=== PATIENT | female | born 1960 | race Caucasian/White ===

== ENCOUNTER 2017-07-07 06:25 | Inpatient (IN) ==
[2017-07-07 07:16] LABS: Basophils % 0.3 %; Bilirubin,Urine Small (Negative); Blood,Urine Negative (Negative); Clarity,Urine Cloudy (Clear); Color,Urine Dark Yellow (Yellow); Eosinophils % 0.2 %; Glucose,Urine (UA) Normal (Normal); Hematocrit 38.5 % (35.3-44.9); Hemoglobin 13.6 g/dL (11.5-15.4); Immature Granulocytes % 0.2 % (0-4); Ketones,Urine Trace mg/dL (Negative); Leukocyte Esterase,Urine Negative (Negative); Lymphocytes # 3.3 K/mcL (0.6-4.6); Lymphocytes % 26.7 %; Mean Corpuscular HGB Conc 35.3 g/dL (31.6-35.5); Mean Corpuscular Hemoglobin 31.4 pg (28.0-33.3); Mean Corpuscular Volume 88.9 fL (83.0-100.0); Mean Platelet Volume 10.7 fL (9.4-12.4); Monocytes # 0.4 K/mcL (0.0-1.3); Monocytes % 3.6 %; Neutrophils # 8.4 K/mcL (1.6-8.9); Nitrite,Urine Negative (Negative); Platelet Count 279 K/mcL (140-400); Protein,Urine 30 mg/dL (Neg-Trace); Red Blood Count 4.33 M/mcL (3.82-4.97); Red Cell Distribution Width 12.8 % (11.5-14.5); Urobilinogen,Urine Normal (Normal)
[2017-07-07 07:19] LABS: Bacteria,Urine None Seen per hpf (None-Few); Squamous Epithelial Cell,Urine Many per lpf (None-Few)
[2017-07-07 07:26] LABS: Amphetamine Screen,Urine Negative ng/mL (Cutoff=1000); Barbiturate Screen,Urine Negative ng/mL (Cutoff=200); Benzodiazepines Screen,Urine Positive ng/mL (Cutoff=200); Cannabinoid Screen,Urine Positive ng/mL (Cutoff = 50); Cocaine Screen,Urine Negative ng/mL (Cutoff= 300); Opiate Screen,Urine Negative ng/mL (Cutoff=300); Phencyclidine Screen,Urine Negative ng/mL (Cutoff=25)
[2017-07-07 07:40] LABS: Acetaminophen < 10 mcg/mL (10-20); BUN/Creatinine Ratio 18 (6-26); Blood Urea Nitrogen 12 mg/dL (6-20); Calcium 9.3 mg/dL (8.6-10.3); Carbon Dioxide 18 mEq/L (23-29); Chloride 108 mEq/L (98-107); Ethanol < 10 mg/dL (Less than 10); Glucose 187 mg/dL (70-105); Osmolality,Calculated 293 (280-300); Potassium 3.1 mEq/L (3.5-5.1); Salicylate < 2.5 mg/dL (15.0-30.0); Sodium 139 mEq/L (136-145); eGFR For African Americans > 60 (> 60); eGFR For Non-African Americans > 60 (> 60)
[2017-07-07 07:42] LABS: RBC,Urine 0-3 per hpf (0-3)
[2017-07-07] MEDS ORDERED: clonazePAM 0.5 MG TABLET PO ONE ×2 (07:55→10:40)
--- NOTE | 2017-07-07 08:17 | Emergency Department Note ---
Disposition Clinical Impression: Suicidal ideation Depression Qualifiers: Depression Type: unspecified Qualified Code(s): F32.9 - Major depressive disorder, single episode, unspecified Disposition: Admitted As Inpatient Condition: Fair Psych HPI - General Chief Complaint: ED Psychiatric Symptoms Stated Complaint: SI/detox Time Seen by Provider: 07/07/17 06:30 Source: patient, family, EMS Nursing Notes Reviewed: Yes Vital Signs Reviewed: Yes - History of Present Illness HPI Narrative: 56 year old female with history of bipolar, depression and anxiety presents with severe depression. Pt has been on Xanax for a year. 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 She tried to quit it due to Benzo gave her more depression. Pt was admitted to a hospital in [place] for Benzo detox in the past week. She was started Paxil three days ago. Pt reported hearing ringing sound in ears since she started Paxil. No human voice heard. Pt felt very scared she might hurt herself due to severe depression. Pt is currently on Long acting Benzo 2 mg twice a day and Xanax 1 mg twice daily. The last she took Benzo was 6 hours ago. She reported she has already experienced withdraw symptoms: anxiety and body ache. No plan for suicide. Pt has history of brain Tumor. It was removed in 1999 in [facility]. Follow up brain CT and MRI were fine. the last time brain CT was done in Apr 2017, no acute change Pt complaint: suicidal ideation, feels depressed, anxiety, other (body ache from Benzo withdraw) Duration: constant History of similar episodes: Yes - Related Data Home Medications Medication Instructions Recorded Confirmed ALPRAZolam [Xanax 0.5 MG Tablet] 0.5 mg PO TID 07/07/17 07/07/17 Alprazolam XR [Xanax Xr] 2 mg PO BID 07/07/17 07/07/17 Amlodipine Besylate 10 mg PO DAILY 07/07/17 07/07/17 Atorvastatin [Lipitor] 40 mg PO HS 07/07/17 07/07/17 Estradiol [Estrace] 1 mg PO DAILY 07/07/17 07/07/17 Lisinopril [Zestril] 20 mg PO DAILY 07/07/17 07/07/17 Medroxyprogesterone Acetate 2.5 mg PO DAILY 07/07/17 07/07/17 [Provera] Multivit-Min/FA/Lycopen/Lutein [A 1 tab PO DAILY 07/07/17 07/07/17 Thru Z Select Multivit Tab] Oxycodone HCl/Acetaminophen 1 tab PO Q4H PRN 07/07/17 07/07/17 [Percocet 5-325 mg Tablet] Paroxetine HCl [Paxil] 20 mg PO DAILY 07/07/17 07/07/17 Allergies Allergy/AdvReac Type Severity Reaction Status Date / Time pramipexole [From Mirapex] Allergy Seizure Verified 07/07/17 06:49 Tetracycline Allergy Anaphylaxis Verified 07/07/17 06:49 aspirin AdvReac Gastrointestinal Verified 07/07/17 06:49 Upset Constitutional: Denies: fever, chills, weakness Eyes: Denies: eye pain, eye discharge ENT ED: Denies: ear pain, throat pain Cardiovascular: Denies: chest pain, palpitations Respiratory: Denies: cough, dyspnea, wheezes Gastrointestinal: Denies: abdominal pain, nausea, vomiting Genitourinary: Denies: urgency, dysuria, frequency Musculoskeletal: Denies: back pain, neck pain, joint swelling Integumentary: Denies: rash, abrasion, lesions Neurological: Denies: headache, weakness, numbness Psychiatric: Denies: anxiety, depression, suicidal thoughts Hematological/Lymphatic: Denies: easy bleeding, easy bruising Allergic/Immunologic: Denies: facial swelling, urticaria Past Medical History - Past Medical History Medical history: Reports: hypertension, migraine, other Surgical history: Reports: hysterectomy, orthopedic, other Psychiatric history: Reports: anxiety, depression - Social History Smoking Status: Former smoker Smokeless Tobacco Status: No Alcohol use: Reports: none Drug use: Reports: prescription drug abuse Physical Exam - General Limitations: no limitations General appearance: alert - Head Head exam: atraumatic, normal inspection - Eye Eye exam: Present: normal appearance. Absent: scleral icterus, conjunctival injection - ENT ENT exam: normal exam, normal external ear exam - Neck Neck exam: Present: normal inspection, full ROM, trachea midline. Absent: tenderness - Chest Chest inspection: Present: normal inspection, symmetric chest wall rise. Absent : tenderness - Respiratory Respiratory exam: Present: normal lung sounds bilaterally. Absent: respiratory distress, wheezes - Cardiovascular Cardiovascular exam: Present: regular rate, normal rhythm - Abdominal Exam Abdominal exam: Present: soft, Non-Tender - Extremities Exam Extremities exam: Present: normal inspection, full ROM. Absent: tenderness - Back Exam Back exam: Present: normal inspection, full ROM. Absent: tenderness - Neurological Exam Neurological exam: Present: alert, oriented X3, CN II-XII intact, normal gait. Absent: motor sensory deficit - Psychiatric Psychiatric exam: Present: depressed (tearing), suicidal ideation (worried that might hurt herself) - Skin Skin exam: Present: warm, intact Course Vital Signs Temperature 98.7 F 07/07/17 06:30 Pulse Rate 86 07/07/17 06:30 Respiratory Rate 20 07/07/17 06:30 Blood Pressure 164/99 07/07/17 06:30 O2 Sat by Pulse Oximetry 98 07/07/17 06:30 Temperature 98.5 F 07/07/17 10:57 Pulse Rate 79 07/07/17 10:57 Respiratory Rate 18 07/07/17 10:57 Blood Pressure 143/78 07/07/17 10:57 O2 Sat by Pulse Oximetry 94 07/07/17 10:57 Oxygen Delivery Oxygen Delivery Room Air Psych - MDM Narrative Medical decision making narrative: 56 year old female with history of Bipolar, depression anxiety presents with suicidal thought. Pt stated she was on benzo for one year. Eversince her depression got worse. Pt was admitted to a hospital in [place]. She started Paxil three days ago.. She started hearing ringing sound in ears after taking new medication. She also complain of so scared to hurt herself, body ache due to Xanax withdraw. Physical exam: pt was tearing, depressed looking, alert and oriented, no focal neurology deficit, no other positive finding in physical. Labs: decreased Potassium level, potassium 40 meq given in ER, UA: benzo, marijuana positive. Otherwise unremarkable blood work. IA evaluation completed , pt will be admitted to Psych unit for suicidal ideation, depression. Dr. Harrell saw this pt as well, agrees the above plan. - Lab Data Result diagrams: 07/07/17 06:46 07/07/17 06:46 Lab Results 07/07/17 07/07/17 07/07/17 Range/Units 06:46 06:46 06:46 WBC 12.2 H (4.3-11.1) K/mcL RBC 4.33 (3.82-4.97) M/mcL Hgb 13.6 (11.5-15.4) g/dL Hct 38.5 (35.3-44.9) % MCV 88.9 (83.0-100.0) fL MCH 31.4 (28.0-33.3) pg MCHC 35.3 (31.6-35.5) g/dL RDW 12.8 (11.5-14.5) % Plt Count 279 (140-400) K/mcL MPV 10.7 (9.4-12.4) fL Immature Gran % 0.2 (0-4) % Seg Neutrophils % 69.0 % Lymphocytes % 26.7 % Monocytes % 3.6 % Eosinophils % 0.2 % Basophils % 0.3 % Neutrophils # 8.4 (1.6-8.9) K/mcL Lymphocytes # 3.3 (0.6-4.6) K/mcL Monocytes # 0.4 (0.0-1.3) K/mcL Eosinophils # 0.0 (0.0-0.6) K/mcL Basophils # 0.0 (0.0-0.2) K/mcL Sodium 139 (136-145) mEq/L Potassium 3.1 L (3.5-5.1) mEq/L Chloride 108 H (98-107) mEq/L Carbon Dioxide 18 L (23-29) mEq/L BUN 12 (6-20) mg/dL Creatinine 0.68 (0.60-1.20) mg/dL Est GFR ( Amer) > 60 (> 60) Est GFR (Non-Af Amer) > 60 (> 60) BUN/Creatinine Ratio 18 (6-26) Glucose 187 H (70-105) mg/dL Calculated Osmolality 293 (280-300) Calcium 9.3 (8.6-10.3) mg/dL Urine Color Dark Yellow (Yellow) Urine Clarity Cloudy A (Clear) Urine pH 6.0 (5.0-8.0) pH Units Ur Specific [place] 1.030 H (1.010-1.025) Urine Protein 30 H (Neg-Trace) mg/dL Urine Glucose (UA) Normal (Normal) mg/dL Urine Ketones Trace H (Negative) mg/dL Urine Blood Negative (Negative) Urine Nitrite Negative (Negative) Urine Bilirubin Small H (Negative) Urine Urobilinogen Normal (Normal) mg/dL Ur Leukocyte Esterase Negative (Negative) Urine Microscopic RBC 0-3 (0-3) per hpf Urine Microscopic WBC 5-15 H (0-3) per hpf Ur Squamous Epith Cells Many H (None-Few) per lpf Urine Bacteria None Seen (None-Few) per hpf Salicylates < 2.5 L (15.0-30.0) mg/dL Urine Opiates Screen (Thvcmw=680) ng/mL Acetaminophen < 10 L (10-20) mcg/mL Ur Barbiturates Screen (Vqijwz=611) ng/mL Ur Phencyclidine Scrn (Cutoff=25) ng/mL Ur Amphetamines Screen (Jgxofk=6960) ng/mL U Benzodiazepines Scrn (Hwewak=580) ng/mL Urine Cocaine Screen (Cutoff= 300) ng/mL U Marijuana (THC) Screen (Cutoff = 50) ng/mL Ethyl Alcohol < 10 (Less than 10) mg/dL 07/07/17 Range/Units 06:46 WBC (4.3-11.1) K/mcL RBC (3.82-4.97) M/mcL Hgb (11.5-15.4) g/dL Hct (35.3-44.9) % MCV (83.0-100.0) fL MCH (28.0-33.3) pg MCHC (31.6-35.5) g/dL RDW (11.5-14.5) % Plt Count (140-400) K/mcL MPV (9.4-12.4) fL Immature Gran % (0-4) % Seg Neutrophils % % Lymphocytes % % Monocytes % % Eosinophils % % Basophils % % Neutrophils # (1.6-8.9) K/mcL Lymphocytes # (0.6-4.6) K/mcL Monocytes # (0.0-1.3) K/mcL Eosinophils # (0.0-0.6) K/mcL Basophils # (0.0-0.2) K/mcL Sodium (136-145) mEq/L Potassium (3.5-5.1) mEq/L Chloride (98-107) mEq/L Carbon Dioxide (23-29) mEq/L BUN (6-20) mg/dL Creatinine (0.60-1.20) mg/dL Est GFR ( Amer) (> 60) Est GFR (Non-Af Amer) (> 60) BUN/Creatinine Ratio (6-26) Glucose (70-105) mg/dL Calculated Osmolality (280-300) Calcium (8.6-10.3) mg/dL Urine Color (Yellow) Urine Clarity (Clear) Urine pH (5.0-8.0) pH Units Ur Specific [place] (1.010-1.025) Urine Protein (Neg-Trace) mg/dL Urine Glucose (UA) (Normal) mg/dL Urine Ketones (Negative) mg/dL Urine Blood (Negative) Urine Nitrite (Negative) Urine Bilirubin (Negative) Urine Urobilinogen (Normal) mg/dL Ur Leukocyte Esterase (Negative) Urine Microscopic RBC (0-3) per hpf Urine Microscopic WBC (0-3) per hpf Ur Squamous Epith Cells (None-Few) per lpf Urine Bacteria (None-Few) per hpf Salicylates (15.0-30.0) mg/dL Urine Opiates Screen Negative (Wopqsr=109) ng/mL Acetaminophen (10-20) mcg/mL Ur Barbiturates Screen Negative (Wymrpi=540) ng/mL Ur Phencyclidine Scrn Negative (Cutoff=25) ng/mL Ur Amphetamines Screen Negative (Zmedfs=5503) ng/mL U Benzodiazepines Scrn Positive H (Xalhcm=058) ng/mL Urine Cocaine Screen Negative (Cutoff= 300) ng/mL U Marijuana (THC) Screen Positive H (Cutoff = 50) ng/mL Ethyl Alcohol (Less than 10) mg/dL Psychiatric Medical Clearance - Medical Clearance Checklist Medical History: Suicidal ideation (Acute) Depression (Acute) Accelerated hypertension (Inactive) Chronic headache (Inactive) Depression (Inactive) Dysphagia (Inactive) Medication refill (Inactive) Migraine (Inactive) Otitis media (Inactive) Postoperative pain (Inactive) No Social History Section defined Current Vitals: Last Vital Signs Temp 98.5 F 07/07/17 10:57 Pulse 79 07/07/17 10:57 Resp 18 07/07/17 10:57 BP 143/78 07/07/17 10:57 Pulse Ox 94 07/07/17 10:57 Psychiatric Lab Panel: Drug Levels and Toxicity 07/07/17 07/07/17 06:46 06:46 Urine Opiates Screen Negative Acetaminophen < 10 L Ur Barbiturates Screen Negative Ur Phencyclidine Scrn Negative Ur Amphetamines Screen Negative U Benzodiazepines Scrn Positive H Urine Cocaine Screen Negative U Marijuana (THC) Screen Positive H Ethyl Alcohol < 10 Abnormal Labs: Abnormal lab results WBC 12.2 K/mcL (4.3-11.1) H 07/07/17 06:46 Potassium 3.1 mEq/L (3.5-5.1) L 07/07/17 06:46 Chloride 108 mEq/L (98-107) H 07/07/17 06:46 Carbon Dioxide 18 mEq/L (23-29) L 07/07/17 06:46 Glucose 187 mg/dL (70-105) H 07/07/17 06:46 Urine Clarity Cloudy (Clear) A 07/07/17 06:46 Ur Specific [place] 1.030 (1.010-1.025) H 07/07/17 06:46 Urine Protein 30 mg/dL (Neg-Trace) H 07/07/17 06:46 Urine Ketones Trace mg/dL (Negative) H 07/07/17 06:46 Urine Bilirubin Small (Negative) H 07/07/17 06:46 Urine Microscopic WBC 5-15 per hpf (0-3) H 07/07/17 06:46 Ur Squamous Epith Cells Many per lpf (None-Few) H 07/07/17 06:46 Salicylates < 2.5 mg/dL (15.0-30.0) L 07/07/17 06:46 Acetaminophen < 10 mcg/mL (10-20) L 07/07/17 06:46 U Benzodiazepines Scrn Positive ng/mL (Nafzne=843) H 07/07/17 06:46 U Marijuana (THC) Screen Positive ng/mL (Cutoff = 50) H 07/07/17 06:46 Statement of Medical Clearance: I have evaluated the patient, reviewed diagnostic information, and certify that the patient's medical condition is sufficiently stable that transfer to the psychiatric unit does not pose a significant risk of deterioration.
--- NOTE | 2017-07-07 11:23 | Emergency Department Note ---
Disposition Clinical Impression: Suicidal ideation Depression Qualifiers: Depression Type: unspecified Qualified Code(s): F32.9 - Major depressive disorder, single episode, unspecified Disposition: Admitted As Inpatient Condition: Fair Referrals: NONE,PCP [Primary Care Provider] - Forms: ED Satisfaction Letter General Adult HPI - General Chief complaint: ED Psychiatric Symptoms Stated complaint: SI/detox Time Seen by Provider: 07/07/17 06:30 Source: patient, family, EMS Limitations: no limitations - History of Present Illness Pain Scale: 0 - Related Data Home Medications Medication Instructions Recorded Confirmed ALPRAZolam [Xanax 0.5 MG Tablet] 0.5 mg PO TID 07/07/17 07/07/17 Alprazolam XR [Xanax Xr] 2 mg PO BID 07/07/17 07/07/17 Amlodipine Besylate 10 mg PO DAILY 07/07/17 07/07/17 Atorvastatin [Lipitor] 40 mg PO HS 07/07/17 07/07/17 Estradiol [Estrace] 1 mg PO DAILY 07/07/17 07/07/17 Lisinopril [Zestril] 20 mg PO DAILY 07/07/17 07/07/17 Medroxyprogesterone Acetate 2.5 mg PO DAILY 07/07/17 07/07/17 [Provera] Multivit-Min/FA/Lycopen/Lutein [A 1 tab PO DAILY 07/07/17 07/07/17 Thru Z Select Multivit Tab] Oxycodone HCl/Acetaminophen 1 tab PO Q4H PRN 07/07/17 07/07/17 [Percocet 5-325 mg Tablet] Paroxetine HCl [Paxil] 20 mg PO DAILY 07/07/17 07/07/17 Allergies Allergy/AdvReac Type Severity Reaction Status Date / Time pramipexole [From Mirapex] Allergy Seizure Verified 07/07/17 06:49 Tetracycline Allergy Anaphylaxis Verified 07/07/17 06:49 aspirin AdvReac Gastrointestinal Verified 07/07/17 06:49 Upset Constitutional: Denies: fever, chills, weakness Eyes: Denies: eye pain, eye discharge ENT ED: Denies: ear pain, throat pain Cardiovascular: Denies: chest pain, palpitations Respiratory: Denies: cough, dyspnea, wheezes Gastrointestinal: Denies: abdominal pain, nausea, vomiting Genitourinary: Denies: urgency, dysuria, frequency Musculoskeletal: Denies: back pain, neck pain, joint swelling Integumentary: Denies: rash, abrasion, lesions Neurological: Denies: headache, weakness, numbness Psychiatric: Denies: anxiety, depression, suicidal thoughts Hematological/Lymphatic: Denies: easy bleeding, easy bruising Allergic/Immunologic: Denies: facial swelling, urticaria Past Medical History - Past Medical History Medical history: Reports: hypertension, migraine, other Surgical history: Reports: hysterectomy, orthopedic, other Psychiatric history: Reports: anxiety, depression - Social History Smoking Status: Former smoker Smokeless Tobacco Status: No Alcohol use: Reports: none Drug use: Reports: prescription drug abuse Physical Exam - General Limitations: no limitations General appearance: alert Course Vital Signs Temperature 98.7 F 07/07/17 06:30 Pulse Rate 86 07/07/17 06:30 Respiratory Rate 20 07/07/17 06:30 Blood Pressure 164/99 07/07/17 06:30 O2 Sat by Pulse Oximetry 98 07/07/17 06:30 Temperature 98.5 F 07/07/17 10:57 Pulse Rate 79 07/07/17 10:57 Respiratory Rate 18 07/07/17 10:57 Blood Pressure 143/78 07/07/17 10:57 O2 Sat by Pulse Oximetry 94 07/07/17 10:57 Oxygen Delivery Oxygen Delivery Room Air Medical Decision Making - Lab Data Result diagrams: 07/07/17 06:46 07/07/17 06:46 Lab Results 07/07/17 07/07/17 07/07/17 Range/Units 06:46 06:46 06:46 WBC 12.2 H (4.3-11.1) K/mcL RBC 4.33 (3.82-4.97) M/mcL Hgb 13.6 (11.5-15.4) g/dL Hct 38.5 (35.3-44.9) % MCV 88.9 (83.0-100.0) fL MCH 31.4 (28.0-33.3) pg MCHC 35.3 (31.6-35.5) g/dL RDW 12.8 (11.5-14.5) % Plt Count 279 (140-400) K/mcL MPV 10.7 (9.4-12.4) fL Immature Gran % 0.2 (0-4) % Seg Neutrophils % 69.0 % Lymphocytes % 26.7 % Monocytes % 3.6 % Eosinophils % 0.2 % Basophils % 0.3 % Neutrophils # 8.4 (1.6-8.9) K/mcL Lymphocytes # 3.3 (0.6-4.6) K/mcL Monocytes # 0.4 (0.0-1.3) K/mcL Eosinophils # 0.0 (0.0-0.6) K/mcL Basophils # 0.0 (0.0-0.2) K/mcL Sodium 139 (136-145) mEq/L Potassium 3.1 L (3.5-5.1) mEq/L Chloride 108 H (98-107) mEq/L Carbon Dioxide 18 L (23-29) mEq/L BUN 12 (6-20) mg/dL Creatinine 0.68 (0.60-1.20) mg/dL Est GFR ( Amer) > 60 (> 60) Est GFR (Non-Af Amer) > 60 (> 60) BUN/Creatinine Ratio 18 (6-26) Glucose 187 H (70-105) mg/dL Calculated Osmolality 293 (280-300) Calcium 9.3 (8.6-10.3) mg/dL Urine Color Dark Yellow (Yellow) Urine Clarity Cloudy A (Clear) Urine pH 6.0 (5.0-8.0) pH Units Ur Specific [place] 1.030 H (1.010-1.025) Urine Protein 30 H (Neg-Trace) mg/dL Urine Glucose (UA) Normal (Normal) mg/dL Urine Ketones Trace H (Negative) mg/dL Urine Blood Negative (Negative) Urine Nitrite Negative (Negative) Urine Bilirubin Small H (Negative) Urine Urobilinogen Normal (Normal) mg/dL Ur Leukocyte Esterase Negative (Negative) Urine Microscopic RBC 0-3 (0-3) per hpf Urine Microscopic WBC 5-15 H (0-3) per hpf Ur Squamous Epith Cells Many H (None-Few) per lpf Urine Bacteria None Seen (None-Few) per hpf Salicylates < 2.5 L (15.0-30.0) mg/dL Urine Opiates Screen (Bfiwoc=631) ng/mL Acetaminophen < 10 L (10-20) mcg/mL Ur Barbiturates Screen (Emdywj=247) ng/mL Ur Phencyclidine Scrn (Cutoff=25) ng/mL Ur Amphetamines Screen (Yfkmnc=8825) ng/mL U Benzodiazepines Scrn (Mdpaft=480) ng/mL Urine Cocaine Screen (Cutoff= 300) ng/mL U Marijuana (THC) Screen (Cutoff = 50) ng/mL Ethyl Alcohol < 10 (Less than 10) mg/dL 07/07/17 Range/Units 06:46 WBC (4.3-11.1) K/mcL RBC (3.82-4.97) M/mcL Hgb (11.5-15.4) g/dL Hct (35.3-44.9) % MCV (83.0-100.0) fL MCH (28.0-33.3) pg MCHC (31.6-35.5) g/dL RDW (11.5-14.5) % Plt Count (140-400) K/mcL MPV (9.4-12.4) fL Immature Gran % (0-4) % Seg Neutrophils % % Lymphocytes % % Monocytes % % Eosinophils % % Basophils % % Neutrophils # (1.6-8.9) K/mcL Lymphocytes # (0.6-4.6) K/mcL Monocytes # (0.0-1.3) K/mcL Eosinophils # (0.0-0.6) K/mcL Basophils # (0.0-0.2) K/mcL Sodium (136-145) mEq/L Potassium (3.5-5.1) mEq/L Chloride (98-107) mEq/L Carbon Dioxide (23-29) mEq/L BUN (6-20) mg/dL Creatinine (0.60-1.20) mg/dL Est GFR ( Amer) (> 60) Est GFR (Non-Af Amer) (> 60) BUN/Creatinine Ratio (6-26) Glucose (70-105) mg/dL Calculated Osmolality (280-300) Calcium (8.6-10.3) mg/dL Urine Color (Yellow) Urine Clarity (Clear) Urine pH (5.0-8.0) pH Units Ur Specific [place] (1.010-1.025) Urine Protein (Neg-Trace) mg/dL Urine Glucose (UA) (Normal) mg/dL Urine Ketones (Negative) mg/dL Urine Blood (Negative) Urine Nitrite (Negative) Urine Bilirubin (Negative) Urine Urobilinogen (Normal) mg/dL Ur Leukocyte Esterase (Negative) Urine Microscopic RBC (0-3) per hpf Urine Microscopic WBC (0-3) per hpf Ur Squamous Epith Cells (None-Few) per lpf Urine Bacteria (None-Few) per hpf Salicylates (15.0-30.0) mg/dL Urine Opiates Screen Negative (Szjyig=960) ng/mL Acetaminophen (10-20) mcg/mL Ur Barbiturates Screen Negative (Nnmpax=633) ng/mL Ur Phencyclidine Scrn Negative (Cutoff=25) ng/mL Ur Amphetamines Screen Negative (Gxstan=0172) ng/mL U Benzodiazepines Scrn Positive H (Fcutvo=296) ng/mL Urine Cocaine Screen Negative (Cutoff= 300) ng/mL U Marijuana (THC) Screen Positive H (Cutoff = 50) ng/mL Ethyl Alcohol (Less than 10) mg/dL Attestation Statement - Attestation Attestation: I have personally performed a face to face evaluation on this patient. I have reviewed and agree with the care plan. History and Exam by me shows: Anxious pt w SI requiring psychiatric admission. No physical complaints on my assessment, medically cleared.
[2017-07-07] MEDS ORDERED: Haloperidol Lactate 5 MG/ML VIAL IM PRN (13:34)
[2017-07-07] MEDS ORDERED: Mag Hydrox/Al Hydrox/Simeth 30 ML UDC PO PRN (13:34)
[2017-07-07] MEDS ORDERED: *HR* LORazepam 1 MG TABLET PO PRN (13:34)
[2017-07-07] MEDS ORDERED: traZODone 50 MG TABLET PO PRN (13:34)
[2017-07-07] MEDS ORDERED: *HR* LORazepam 2 MG/ML VIAL IM PRN (13:34)
[2017-07-07] MEDS ORDERED: hydrOXYzine pamoate 25 MG CAPSULE PO PRN (13:34)
[2017-07-07] MEDS ORDERED: MOM Conc 10 ML UD.LIQ PO PRN (13:34)
[2017-07-07] MEDS ORDERED: *HR* OxyCODONE/APAP 5/325 TABLET PO PRN (14:05)
[2017-07-07] MEDS: Lisinopril 20 MG TABLET PO SCH (14:47)
[2017-07-07] MEDS: amLODIPine 5 MG TABLET PO SCH (14:47)
[2017-07-07] MEDS: diazePAM 5 MG TABLET PO SCH ×2 (14:47→20:34)
[2017-07-07] MEDS: Multivit/Ca/Min/Fe/FA 1 TAB TABLET PO SCH (14:58)
[2017-07-08] MEDS: Multivit/Ca/Min/Fe/FA 1 TAB TABLET PO SCH (09:33)
[2017-07-08] MEDS: amLODIPine 5 MG TABLET PO SCH (09:34)
[2017-07-08] MEDS: diazePAM 5 MG TABLET PO SCH ×2 (09:34→20:28)
[2017-07-08] MEDS: Lisinopril 20 MG TABLET PO SCH (09:34)
--- NOTE | 2017-07-08 11:52 | Psychiatry History & Physical ---
Date of Encounter: 07/08/17 Time of Encounter: 11:00 History of Present Illness Patient Stated Chief Complaint: "I feel like my skin is on fire." Medicare Admission Attestation: For traditional Medicare patients the provided hospital inpatient services are reasonable and necessary and in the case of services not specified as inpatient -only under 42 CFR 419.22 (n), that they are appropriately provided as inpatient services in accordance 42 CFR 412.3. For Critical Access Hospital the patient may reasonably be expected to be discharged or transferred to a hospital within 96 hours after admission to the Critical Access Hospital. Admitted From: Emergency Dept History of Present Illness: Ms. Collier is a 56 year old female with a reported history of bipolar disorder, anxiety, Xanax withdrawal who presented to the ED after reported seizure increased anxiety and severe depression with suicidal ideations. Patient reports that her outpatient psychiatrist had her on Xanax up to 6 mg per day that was at this dosage for about 6 months. Patient has been taking Xanax for about a year. She states that it did help with her anxiety but over the past few months she has noticed a severe incident in her mood. She feels very depressed and she states she feels this is related to the Xanax. Her outpatient doctor referred her to a detox facility. She reports she was there for several days and they gave her Seroquel to Valium during her stay but discharge her with no benzodiazepine medications. She was given Paxil and Vistaril. Patient states that she thought she would be okay at first but then started to have severe restlessness, nausea, vomiting, feeling of her skin burning, headache and insomnia. She feels hopeless that she will never be happy like she was before and fantasizes about running her car into a tree. She states that she would try this because she is Zoroast[employer]ism. She does continue to have thoughts of wanting to end her life in a passive manner even today. Patient is concerned about what will happen when she leaves the hospital. She is only been on the Paxil for about 2-3 days. She denies auditory or visual hallucinations. She reports she has a history of "haley." However she has not had a period of decreased need for sleep, impulsivity and grandiosity. Patient appears to be reporting that she used to be much happier and physically able to do things. She has been disabled for several years secondary to a lot of physical issues and "hardware in my back." Her main emotional support is her boyfriend. Past Med Surg Social Fam HX - Past Medical History Medical history: hypertension, migraine, other - Past Psychiatric History Psychiatric history: Reports: anxiety, bipolar, prior suicide attempt Past psychiatric history details: Patient have outpatient psychiatrist. She has been diagnosed with bipolar disorder, anxiety symptoms. One suicide attempt at the age of 20 because of boyfriend was leaving her. Family psychiatric history: Yes Family Psychiatric History Details: Mother and aunts both struggle with emotional issues around this age. Family History of Suicide: None - Past Surgical History Surgical History: hysterectomy, orthopedic, other - Social History Smoking Status: Former smoker Smokeless Tobacco Status: No Alcohol use: none Drug use: prescription drug abuse Occupational status: disabled Current living situation: Home Activity Level: Independent ambulation Medications & Allergies ALPRAZolam [Xanax 0.5 MG Tablet] 0.5 mg PO TID 07/07/17 [History] Alprazolam XR [Xanax Xr] 2 mg PO BID 07/07/17 [History] Amlodipine Besylate 10 mg PO DAILY 07/07/17 [History] Atorvastatin [Lipitor] 40 mg PO HS 07/07/17 [History] Estradiol [Estrace] 1 mg PO DAILY 07/07/17 [History] Lisinopril [Zestril] 20 mg PO DAILY 07/07/17 [History] Medroxyprogesterone Acetate [Provera] 2.5 mg PO DAILY 07/07/17 [History] Multivit-Min/FA/Lycopen/Lutein [A Thru Z Select Multivit Tab] 1 tab PO DAILY 11/16 [History] Oxycodone HCl/Acetaminophen [Percocet 5-325 mg Tablet] 1 tab PO Q4H PRN [History] Paroxetine HCl [Paxil] 20 mg PO DAILY 07/07/17 [History] 3 Allergy/AdvReac Type Severity Reaction Status Date / Time pramipexole [From Mirapex] Allergy Seizure Verified 07/07/17 06:49 Tetracycline Allergy Anaphylaxis Verified 07/07/17 06:49 aspirin AdvReac Gastrointestinal Verified 07/07/17 06:49 Upset Review of Systems Constitutional: Reports: chills Gastrointestinal: Reports: nausea, vomiting Musculoskeletal: Reports: back pain, joint pain, myalgia Neurological: Reports: paresthesias Psychiatric: Reports: depression, anxiety, abnormal sleep pattern, suicidal ideation, change in appetite, difficulty concentrating, hopelessness, irritability, mood swings, panic attacks Exam - HEENT Head exam IM: Present: atraumatic Eye exam IM: Present: EOMI, normal appearance, PERRL ENT exam IM: Present: normal exam - Neurological Neurological exam: Present: CN II-XII intact - Respiratory Respiratory exam IM: Present: accessory muscle use - GI/Abdominal GI/Abdominal exam IM: Present: normal bowel sounds, soft. Absent: tenderness - Extremities Extremities exam IM: Present: full ROM - Skin Skin exam IM: Present: dry, warm - Constitutional Vitals: Temp Pulse Resp BP Pulse Ox 98.5 F 76 18 115/82 94 07/08/17 09:00 07/08/17 09:00 07/08/17 09:00 07/08/17 09:00 07/07/17 10:57 General appearance: unkempt, disheveled - Musculoskeletal Gait: normal Station: shaky Strength & Tone: mild weakness - Psychiatric Patient Orientation: Yes Person Level of alertness: Alert Behavior: cooperative, tearful, restless Psychomotor activity: Increased Eye Contact: Maintains Eye Contact Mood Description: Depressed, Anxious Affect description: tearful, dysphoric, anxious Speech Volume: Normal Speech pattern: normal rate, normal rhythm, normal tone, fluent, spontaneous Language & Vocabulary: consistent with education Thought Process: Linear, Goal Oriented Thought Content: Yes Suicidal ideation, No Homicidal ideation, No Overt delusions Perceptual Disturbances: No Auditory hallucinations, No Visual hallucinations Attention Span Ability: Capable of Focused Attention Memory Description: Grossly Intact Patient Reliability: Reliable Historian Fund of knowledge: Yes abstraction ability, Yes average, Yes aware of current events Intelligence Estimate: Average Judgment: Limited Insight: Partial Results - Labs Labs: Laboratory Last Values WBC 12.2 K/mcL (4.3-11.1) H 07/07/17 06:46 RBC 4.33 M/mcL (3.82-4.97) 07/07/17 06:46 Hgb 13.6 g/dL (11.5-15.4) 07/07/17 06:46 Hct 38.5 % (35.3-44.9) 07/07/17 06:46 MCV 88.9 fL (83.0-100.0) 07/07/17 06:46 MCH 31.4 pg (28.0-33.3) 07/07/17 06:46 MCHC 35.3 g/dL (31.6-35.5) 07/07/17 06:46 RDW 12.8 % (11.5-14.5) 07/07/17 06:46 Plt Count 279 K/mcL (140-400) 07/07/17 06:46 MPV 10.7 fL (9.4-12.4) 07/07/17 06:46 Immature Gran % 0.2 % (0-4) 07/07/17 06:46 Seg Neutrophils % 69.0 % 07/07/17 06:46 Lymphocytes % 26.7 % 07/07/17 06:46 Monocytes % 3.6 % 07/07/17 06:46 Eosinophils % 0.2 % 07/07/17 06:46 Basophils % 0.3 % 07/07/17 06:46 Neutrophils # 8.4 K/mcL (1.6-8.9) 07/07/17 06:46 Lymphocytes # 3.3 K/mcL (0.6-4.6) 07/07/17 06:46 Monocytes # 0.4 K/mcL (0.0-1.3) 07/07/17 06:46 Eosinophils # 0.0 K/mcL (0.0-0.6) 07/07/17 06:46 Basophils # 0.0 K/mcL (0.0-0.2) 07/07/17 06:46 Sodium 139 mEq/L (136-145) 07/07/17 06:46 Potassium 3.1 mEq/L (3.5-5.1) L 07/07/17 06:46 Chloride 108 mEq/L (98-107) H 07/07/17 06:46 Carbon Dioxide 18 mEq/L (23-29) L 07/07/17 06:46 BUN 12 mg/dL (6-20) 07/07/17 06:46 Creatinine 0.68 mg/dL (0.60-1.20) 07/07/17 06:46 Est GFR ( Amer) > 60 (> 60) 07/07/17 06:46 Est GFR (Non-Af Amer) > 60 (> 60) 07/07/17 06:46 BUN/Creatinine Ratio 18 (6-26) 07/07/17 06:46 Glucose 187 mg/dL (70-105) H 07/07/17 06:46 Calculated Osmolality 293 (280-300) 07/07/17 06:46 Calcium 9.3 mg/dL (8.6-10.3) 07/07/17 06:46 Urine Color Dark Yellow (Yellow) 07/07/17 06:46 Urine Clarity Cloudy (Clear) A 07/07/17 06:46 Urine pH 6.0 pH Units (5.0-8.0) 05 06:46 Ur Specific [place] 1.030 (1.010-1.025) H 07/07/17 06:46 Urine Protein 30 mg/dL (Neg-Trace) H 07/07/17 06:46 Urine Glucose (UA) Normal mg/dL (Normal) 07/07/17 06:46 Urine Ketones Trace mg/dL (Negative) H 07/07/17 06:46 Urine Blood Negative (Negative) 07/07/17 06:46 Urine Nitrite Negative (Negative) 07/07/17 06:46 Urine Bilirubin Small (Negative) H 07/07/17 06:46 Urine Urobilinogen Normal mg/dL (Normal) 07/07/17 06:46 Ur Leukocyte Esterase Negative (Negative) 07/07/17 06:46 Urine Microscopic RBC 0-3 per hpf (0-3) 07/07/17 06:46 Urine Microscopic WBC 5-15 per hpf (0-3) H 07/07/17 06:46 Ur Squamous Epith Cells Many per lpf (None-Few) H 07/07/17 06:46 Urine Bacteria None Seen per hpf (None-Few) 07/07/17 06:46 Salicylates < 2.5 mg/dL (15.0-30.0) L 07/07/17 06:46 Urine Opiates Screen Negative ng/mL (Msypur=922) 07/07/17 06:46 Acetaminophen < 10 mcg/mL (10-20) L 07/07/17 06:46 Ur Barbiturates Screen Negative ng/mL (Kfncns=212) 07/07/17 06:46 Ur Phencyclidine Scrn Negative ng/mL (Cutoff=25) 07/07/17 06:46 Ur Amphetamines Screen Negative ng/mL (Ovapim=3205) 07/07/17 06:46 U Benzodiazepines Scrn Positive ng/mL (Izcwqt=313) H 07/07/17 06:46 Urine Cocaine Screen Negative ng/mL (Cutoff= 300) 18 06:46 U Marijuana (THC) Screen Positive ng/mL (Cutoff = 50) H 07/07/17 06:46 Ethyl Alcohol < 10 mg/dL (Less than 10) 07/07/17 06:46 Assessment and Plan (1) Bipolar II disorder Current visit: Yes Status: Acute Plan: Admit inpatient for safety and stabilization, Close observation, Suicide Precautions per unit protocol, Encourage participation in unit milieu, Group Therapy, Monitor sleep, Monitor appetite Additional Plan: Patient is severely depressed and suicidal. We will admit to 1A for psychiatric stabilization. Patient has a diagnosis of bipolar disorder but it is unclear if this is type I or 2. We will monitor and admitted stabilizer if necessary. We will continue Paxil at current dosage. Start Elavil 25 mg by mouth daily at bedtime for sleep symptoms. Encourage positive coping strategies to deal with stressors. Encourage group attendance. Risks, benefits, side effects, alternatives discussed w/pt: Yes Patient agreeable to treatment: Yes Plans for Post Hospital Care: Home Estimated Length of Stay (Days): 4 (2) Benzodiazepine withdrawal Current visit: Yes Status: Acute Plan: Admit inpatient for safety and stabilization, Close observation, Suicide Precautions per unit protocol, Encourage participation in unit milieu, Group Therapy, Monitor sleep, Monitor appetite Additional Plan: Monitor vitals. Valium 5 mg by mouth twice a day to help with withdrawal symptoms. Propranolol 10 mg by mouth twice a day for restlessness and anxiety. Monitor BP closely. Zofran for nausea related to withdrawal. Risks, benefits, side effects, alternatives discussed w/pt: Yes Patient agreeable to treatment: Yes Plans for Post Hospital Care: Home Qualifiers: Complication of substance-induced condition: uncomplicated Qualified Code(s ): F13.230 - Sedative, hypnotic or anxiolytic dependence with withdrawal, uncomplicated (3) Generalized anxiety disorder Current visit: Yes Status: Acute Plan: Admit inpatient for safety and stabilization, Close observation, Suicide Precautions per unit protocol, Encourage participation in unit milieu, Group Therapy, Monitor sleep, Monitor appetite Additional Plan: Propranolol 10 mg by mouth twice a day. Risks, benefits, side effects, alternatives discussed w/pt: Yes Patient agreeable to treatment: Yes Plans for Post Hospital Care: Home Estimated Length of Stay (Days): 5 (4) Personality disorder Current visit: Yes Status: Acute Plan: Close observation, Encourage participation in unit milieu, Group Therapy Additional Plan: Encourage positive coping strategies. Patient displaying dependent personality traits. Recommend therapy as an outpatient. Risks, benefits, side effects, alternatives discussed w/pt: Yes Patient agreeable to treatment: Yes
[2017-07-08] MEDS: Ondansetron ODT 4 MG TAB.RAPDIS SL PRN ×2 (12:34→20:29)
[2017-07-09] MEDS: amLODIPine 5 MG TABLET PO SCH (09:30)
[2017-07-09] MEDS: Lisinopril 20 MG TABLET PO SCH (09:30)
[2017-07-09] MEDS: Multivit/Ca/Min/Fe/FA 1 TAB TABLET PO SCH (09:30)
[2017-07-09] MEDS: diazePAM 5 MG TABLET PO SCH ×2 (09:31→20:44)
--- NOTE | 2017-07-09 10:17 | Psychiatry Progress Note ---
Date of Encounter: 07/09/17 Time of Encounter: 09:50 Subjective Interval history: Jeanette is seen today for follow-up of her depression, anxiety, benzodiazepine withdrawal. Patient also struggles with dependent personality traits. She is very anxious and tearful. She reports that she does not think she will ever get better or get back to her "old self." Discussed with patient to try journaling and setting goals for herself that are reachable. Encourage patient to attend groups and patient states that she "cannot be around all those people." Encouraged patient to try and sit in group even if she is unable to participate. Discussed with patient that in order for us to improve sleep issues she would need to be up and out of bed. She is agreeable to adjusting sleep meds. She tolerated propranolol well and denies dizziness or fatigue. She does report a headache, feelings of burning on her skin, nausea and severe anxiety. Review of Systems Constitutional: Reports: weakness. Denies: fever Eyes: Denies: eye pain, vision change Cardiovascular: Reports: palpitations. Denies: dyspnea on exertion, syncope Respiratory: Denies: cough, dyspnea, wheezes Gastrointestinal: Reports: nausea. Denies: abdominal pain Genitourinary female: Denies: urgency, dysuria, frequency, hematuria, dyspareunia Musculoskeletal: Reports: back pain, myalgia Neurological: Reports: headache, weakness, paresthesias. Denies: confusion, abnormal gait Psychiatric: Reports: depression, anxiety, abnormal sleep pattern, suicidal ideation, change in appetite, difficulty concentrating, hopelessness, irritability, mood swings, panic attacks Endocrine: Denies: fatigue Results - Vital Signs Vital Signs: Temp Pulse Resp BP Pulse Ox 98.6 F 64 22 111/59 94 07/09/17 09:00 07/09/17 09:00 07/09/17 09:00 07/09/17 09:00 07/07/17 10:57 Assessment and Plan (1) Bipolar II disorder Current visit: Yes Status: Acute Plan: Continue hospitalization, Close observation, Suicide Precautions per unit protocol, Encourage participation in unit milieu, Group Therapy, Monitor sleep, Monitor appetite Additional Plan: We will increase amitriptyline and monitor for improvement in sleep. Consider substituting for a low-dose second generation antipsychotic such as Seroquel for mood stabilization and sleep. Encourage positive coping strategies and participation in group activities. Monitor sleep and appetite. Risks, benefits, side effects, alternatives discussed w/pt: Yes Patient agreeable to treatment: Yes (2) Benzodiazepine withdrawal Current visit: Yes Status: Acute Plan: Continue hospitalization, Close observation, Suicide Precautions per unit protocol, Encourage participation in unit milieu, Group Therapy, Monitor sleep, Monitor appetite Additional Plan: We will increase propranolol dosage slightly and monitor vitals. Patient reports significant restlessness and anxiousness not treated with current dosages of meds. She does not want to take Vistaril. Plan to decrease Valium doses to once daily dosing prior to discharge. Risks, benefits, side effects, alternatives discussed w/pt: Yes Patient agreeable to treatment: Yes Qualifiers: Complication of substance-induced condition: uncomplicated Qualified Code(s ): F13.230 - Sedative, hypnotic or anxiolytic dependence with withdrawal, uncomplicated (3) Generalized anxiety disorder Current visit: Yes Status: Acute Plan: Continue hospitalization, Close observation, Suicide Precautions per unit protocol, Encourage participation in unit milieu, Group Therapy, Monitor sleep, Monitor appetite Additional Plan: Encourage coping strategies and group attendance. Risks, benefits, side effects, alternatives discussed w/pt: Yes Patient agreeable to treatment: Yes (4) Personality disorder Current visit: Yes Status: Acute Risks, benefits, side effects, alternatives discussed w/pt: Yes Patient agreeable to treatment: Yes Consult Discharge Plan - Plan Referrals: [facility] [Outside] - 08/23/17 3:00 pm (The above appointment is with Dr. Mccall for outpatient psychiatric assessment and medication management services. The above appointment reflects first availability. You may contact the office at regular intervals to check for cancellations that may allow you to be seen sooner.) [facility] [Outside] - 07/19/17 4:00 pm (The above appointment is with Lana Dominique for outpatient mental health counseling services. You will also see Amanda Mcgee for outpatient psychiatric assessment and medication management services on 07/29/2017 at 2:30pm.) Psychiatry Exam - Constitutional Vitals: Temp Pulse Resp BP Pulse Ox 98.6 F 64 22 111/59 94 07/09/17 09:00 07/09/17 09:00 07/09/17 09:00 07/09/17 09:00 07/07/17 10:57 General appearance: unkempt, disheveled - Musculoskeletal Gait: other (Patient lying in bed) Station: [facility] Strength & Tone: mild weakness - Psychiatric Patient Orientation: Yes Person, Yes Time, Yes Place, Yes Circumstance Level of alertness: Alert Behavior: nervous, anxious, fearful Psychomotor activity: Increased Eye Contact: Intense Contact Mood Description: Depressed, Anxious Affect description: congruent with mood, tearful, dysphoric, anxious Speech Volume: Normal Speech pattern: rambling, excessive Language & Vocabulary: consistent with education Thought Process: Logical, Perseveration Thought Content: Yes Suicidal ideation, No Homicidal ideation Perceptual Disturbances: No Auditory hallucinations, No Visual hallucinations Attention Span Ability: Capable of Focused Attention Memory Description: Grossly Intact Patient Reliability: Reliable Historian Fund of knowledge: No abstraction ability, Yes average, Yes aware of current events Intelligence Estimate: Average Judgment: Limited Insight: Minimal
[2017-07-09] MEDS: Ondansetron ODT 4 MG TAB.RAPDIS SL PRN (13:03)
[2017-07-09] MEDS: Acetaminophen 325 MG TABLET PO PRN (20:43)
[2017-07-10] MEDS: *HR* OxyCODONE/APAP 5/325 TABLET PO PRN (03:43)
[2017-07-10] MEDS: Lisinopril 20 MG TABLET PO SCH (10:22)
[2017-07-10] MEDS: amLODIPine 5 MG TABLET PO SCH (10:22)
[2017-07-10] MEDS: diazePAM 5 MG TABLET PO SCH ×2 (10:22→21:31)
[2017-07-10] MEDS: Multivit/Ca/Min/Fe/FA 1 TAB TABLET PO SCH (10:22)
--- NOTE | 2017-07-10 15:58 | Psychiatry Progress Note ---
Date of Encounter: 07/10/17 Time of Encounter: 16:30 Subjective Interval history: Pt is a 56 yo, , female, who presents for, mood, depression and benzodiazepine withdrawl. Pt noted that she feels not too good today. Pt denied any side effects to current medications. Pt noted she felt safe and comfortable in her room on the unit. Pt noted a hx of manic episodes and a diagnosis of bipolar D/O. Pt was in agreement to start lurasidone. Pt was educated on the risks benefits and side-effects of lurasidone including TD and it can be permeant. Pt was in agreement with treatment plan. Pt noted that she is doing pretty good today. Pt noted she slept 8 hours last night. Pt noted her appetite is okay. Pt rated her depression a 9, on a scale of zero to ten with ten being the worst and zero being none. Pt rate her anxiety a 10, on the same scale. Pt denied any auditory or visual. Pt denied any thoughts to harm herself or anyone else. Tobacco: 1-3 ciggs per day. 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 Speech: fluent, normal tone, normal rate Mood: great Affect: mood congruent Thought content: no HI noted, no SI noted, no delusions noted Psychosis: currently does not appear to be responding to internal stimuli. Thought Process: linear logical Goal oriented Judgment: Questionable. Insight: Questionable. 1.Interval hx 2.Continue current medications 3.Review current labs 4.Pt had an opportunity to ask questions and discuss current treatment plan. 5.Supportive therapy was provided 6.Pt encouraged to consider group or individual therapy 7.Pt was in agreement with treatment plan. 8.Pt was educated on the risks benefits and side effects of current medications. 9.Continue to coordinate discharge planning. 10. Start lurasidone 20 mg PO every day for mood take with 300 kcal of food Review of Systems Psychiatric: Reports: depression, anxiety, abnormal sleep pattern, suicidal ideation, change in appetite, difficulty concentrating, hopelessness, irritability, mood swings, panic attacks Results - Vital Signs Vital Signs: Temp Pulse Resp BP Pulse Ox 98.4 F 70 18 106/72 94 07/10/17 09:00 07/10/17 09:00 07/10/17 09:00 07/10/17 09:00 07/07/17 10:57 Consult Discharge Plan - Plan Referrals: [facility] [Outside] - 08/23/17 3:00 pm (The above appointment is with Dr. Mccall for outpatient psychiatric assessment and medication management services. The above appointment reflects first availability. You may contact the office at regular intervals to check for cancellations that may allow you to be seen sooner.) [facility] [Outside] - 07/19/17 4:00 pm (The above appointment is with Lana Dominique for outpatient mental health counseling services. ) Psychiatry Exam - Constitutional Vitals: Temp Pulse Resp BP Pulse Ox 98.4 F 70 18 106/72 94 07/10/17 09:00 07/10/17 09:00 07/10/17 09:00 07/10/17 09:00 07/07/17 10:57
[2017-07-10] MEDS: Ondansetron ODT 4 MG TAB.RAPDIS SL PRN (17:08)
[2017-07-10] MEDS: Acetaminophen 325 MG TABLET PO PRN (21:34)
[2017-07-10] MEDS: Lurasidone 20 MG TABLET PO SCH (21:34)
[2017-07-11] MEDS: Lurasidone 20 MG TABLET PO SCH (10:15)
[2017-07-11] MEDS: Multivit/Ca/Min/Fe/FA 1 TAB TABLET PO SCH (10:15)
[2017-07-11] MEDS: Lisinopril 20 MG TABLET PO SCH (10:15)
[2017-07-11] MEDS: diazePAM 5 MG TABLET PO SCH ×2 (10:16→21:19)
[2017-07-11] MEDS: amLODIPine 5 MG TABLET PO SCH (10:16)
[2017-07-11] MEDS ORDERED: Lurasidone 20 MG TABLET PO SCH (13:22)
--- NOTE | 2017-07-11 13:29 | Psychiatry Progress Note ---
Date of Encounter: 07/11/17 Time of Encounter: 12:30 Subjective Interval history: Pt is a 56 yo, , female, who presents for, mood, depression and benzodiazepine withdrawl. Pt noted that she feels better today. Pt denied any side effects to current medications. Pt noted she felt safe and comfortable in her room on the unit. Pt noted a hx of manic episodes and a diagnosis of bipolar D/O. Pt was in agreement to start lurasidone however move the medication to AM due to restless leg syndrome. Pt additonally agreed to initate gabapentin 100 mg po TID for anxiety, and requip for restless leg syndrome, pt was educated on the risks benifits and side effects of these medications including no medications pt was in agreement. Pt was educated on the risks benefits and side-effects of lurasidone including TD and it can be permeant. Pt request D/C of amitriptline. Pt was in agreement with treatment plan. Pt noted that she is doing better today. Pt noted she slept 8 hours last night. Pt noted her appetite is okay. Pt rated her depression a "7, on a scale of zero to ten with ten being the worst and zero being none. Pt rate her anxiety a 10, on the same scale. Pt denied any auditory or visual. Pt denied any thoughts to harm herself or anyone else. Tobacco: 1-3 ciggs per day. 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 Speech: fluent, normal tone, normal rate Mood: better Affect: mood congruent Thought content: no HI noted, no SI noted, no delusions noted Psychosis: currently does not appear to be responding to internal stimuli. Thought Process: linear logical Goal oriented Judgment: Questionable. Insight: fair. 1.Interval hx 2.Continue current medications 3.Review current labs 4.Pt had an opportunity to ask questions and discuss current treatment plan. 5.Supportive therapy was provided 6.Pt encouraged to consider group or individual therapy 7.Pt was in agreement with treatment plan. 8.Pt was educated on the risks benefits and side effects of current medications. 9.Continue to coordinate discharge planning. 10. Change lurasidone 20 mg PO QAM for mood take with 300 kcal of food Review of Systems Psychiatric: Reports: depression, anxiety, abnormal sleep pattern, suicidal ideation, change in appetite, difficulty concentrating, hopelessness, irritability, mood swings, panic attacks Results - Vital Signs Vital Signs: Temp Pulse Resp BP Pulse Ox 97.2 F L 94 14 125/87 94 07/11/17 09:00 07/11/17 09:00 07/11/17 09:00 07/11/17 09:00 07/07/17 10:57 Assessment and Plan (1) Benzodiazepine withdrawal Current visit: Yes Status: Acute Risks, benefits, side effects, alternatives discussed w/pt: Yes Patient agreeable to treatment: Yes Qualifiers: Complication of substance-induced condition: uncomplicated Qualified Code(s ): F13.230 - Sedative, hypnotic or anxiolytic dependence with withdrawal, uncomplicated (2) Bipolar II disorder Current visit: Yes Status: Acute Risks, benefits, side effects, alternatives discussed w/pt: Yes Patient agreeable to treatment: Yes (3) Depression Current visit: Yes Status: Acute Qualifiers: Depression Type: unspecified Qualified Code(s): F32.9 - Major depressive disorder, single episode, unspecified (4) Generalized anxiety disorder Current visit: Yes Status: Acute Risks, benefits, side effects, alternatives discussed w/pt: Yes Patient agreeable to treatment: Yes (5) Personality disorder Current visit: Yes Status: Acute Risks, benefits, side effects, alternatives discussed w/pt: Yes Patient agreeable to treatment: Yes Consult Discharge Plan - Plan Additional Instructions: Consider possible D/C home tomorrow 07/12/2017 Referrals: [facility] [Outside] - 08/23/17 3:00 pm (The above appointment is with Dr. Mccall for outpatient psychiatric assessment and medication management services. The above appointment reflects first availability. You may contact the office at regular intervals to check for cancellations that may allow you to be seen sooner.) [facility] [Outside] - 07/19/17 4:00 pm (The above appointment is with Lana Dominique for outpatient mental health counseling services. ) Psychiatry Exam - Constitutional Vitals: Temp Pulse Resp BP Pulse Ox 97.2 F L 94 14 125/87 94 07/11/17 09:00 07/11/17 09:00 07/11/17 09:00 07/11/17 09:00 07/07/17 10:57
[2017-07-11] MEDS: Gabapentin 100 MG CAPSULE PO SCH ×2 (14:42→21:18)
[2017-07-11] MEDS: *HR* OxyCODONE/APAP 5/325 TABLET PO PRN (18:40)
[2017-07-11] MEDS ORDERED: rOPINIRole 0.25 MG TABLET PO SCH (21:00)
[2017-07-12] MEDS: Gabapentin 100 MG CAPSULE PO SCH (09:46)
[2017-07-12] MEDS: diazePAM 5 MG TABLET PO SCH (09:47)
[2017-07-12] MEDS: Multivit/Ca/Min/Fe/FA 1 TAB TABLET PO SCH (09:47)
[2017-07-12] MEDS: Lisinopril 20 MG TABLET PO SCH (09:48)
[2017-07-12] MEDS: amLODIPine 5 MG TABLET PO SCH (09:48)
[2017-07-12 10:00] VITALS: BP 102/74
--- NOTE | 2017-07-12 11:48 | Discharge Summary ---
Date of Encounter: 07/12/17 Time of Encounter: 11:15 Diagnosis - Discharge Diagnosis (1) Benzodiazepine withdrawal Priority: Primary Status: Acute Comments: continue to taper off Qualifiers: Complication of substance-induced condition: uncomplicated Qualified Code(s ): F13.230 - Sedative, hypnotic or anxiolytic dependence with withdrawal, uncomplicated (2) Bipolar II disorder Priority: Primary Status: Acute Comments: started lurasidone, currently stable (3) Depression Priority: Secondary Status: Acute Comments: NO SI or HI noted. improvment noted denies at this time Qualifiers: Depression Type: unspecified Qualified Code(s): F32.9 - Major depressive disorder, single episode, unspecified (4) Generalized anxiety disorder Priority: Secondary Status: Acute (5) Personality disorder Priority: Secondary Status: Acute Medications - Discharge Medications Prescriptions: diazePAM [Valium] 5 mg PO BID 30 Days #60 tablet Gabapentin [Neurontin] 100 mg PO TID #90 capsule Lurasidone [Latuda] 20 mg PO DAILY #30 tablet Propranolol [Inderal] 10 mg PO TID #30 tablet Amlodipine Besylate 10 mg PO DAILY 07/07/17 [History] Atorvastatin [Lipitor] 40 mg PO HS 07/07/17 [History] Estradiol [Estrace] 1 mg PO DAILY 07/07/17 [History] Lisinopril [Zestril] 20 mg PO DAILY 07/07/17 [History] Medroxyprogesterone Acetate [Provera] 2.5 mg PO DAILY 07/07/17 [History] Multivit-Min/FA/Lycopen/Lutein [A Thru [employer] Select Multivit Tab] 1 tab PO DAILY 11/16 [History] Oxycodone HCl/Acetaminophen [Percocet 5-325 mg Tablet] 1 tab PO Q4H PRN [History] Paroxetine HCl [Paxil] 20 mg PO DAILY 07/07/17 [History] Gabapentin [Neurontin] 100 mg PO TID #90 capsule 07/12/17 [Rx] Lurasidone [Latuda] 20 mg PO DAILY #30 tablet 07/12/17 [Rx] Propranolol [Inderal] 10 mg PO TID #30 tablet 07/12/17 [Rx] diazePAM [Valium] 5 mg PO BID 30 Days #60 tablet 07/12/17 [Rx] rOPINIRole [Requip] 0.25 mg PO HS #30 tablet 07/12/17 [Rx] 3 Allergy/AdvReac Type Severity Reaction Status Date / Time pramipexole [From Mirapex] Allergy Seizure Verified 07/07/17 06:49 Tetracycline Allergy Anaphylaxis Verified 07/07/17 06:49 aspirin AdvReac Gastrointestinal Verified 07/07/17 06:49 Upset Provider Date of admission: 07/07/17 13:03 Primary care physician: PCP NONE Consults: 07/07/17 13:56 Consult to [facility] Services [CONS] Routine Comment: Discharging clinician: Chai Barkley Psychiatry Exam - Constitutional Vitals: Temp Pulse Resp BP Pulse Ox 98.8 F 77 16 102/74 94 07/12/17 09:00 07/12/17 09:00 07/12/17 09:00 07/12/17 09:00 07/07/17 10:57 General appearance: age & developmentally appropriate, well-groomed, well- nourished - Musculoskeletal Gait: normal Strength & Tone: normal for patient - Psychiatric Patient Orientation: Yes Person, Yes Time, Yes Place, Yes Circumstance Level of alertness: Alert Behavior: calm Psychomotor activity: Normal Eye Contact: Maintains Eye Contact Mood Description: Euthymic/stable Affect description: congruent with mood Speech Volume: Normal Speech pattern: normal rate Language & Vocabulary: consistent with education Thought Process: Intact Thought Content: Yes Intact Perceptual Disturbances: Yes Reacting to internal stimuli Attention Span Ability: Capable of Focused Attention Memory Description: Grossly Intact Patient Reliability: Reliable Historian Fund of knowledge: Yes abstraction ability Intelligence Estimate: Average Judgment: Fair Insight: Full Hospital Course Hospital course: Pt is a 56 yo, , female, who presents for, mood, depression and benzodiazepine withdrawl. Pt noted that she feels better today. PT noted she feels safe and comfortable for D/C home. Pt stated she felt she has improved and feels stable for D/C. Pt denied any side effects to current medications. Pt noted she felt safe and comfortable in her room on the unit. Pt was in agreement to continue lurasidone for mood. Pt additonally agreed to continue gabapentin 100 mg po TID for anxiety, and requip for restless leg syndrome, pt was educated on the risks benifits and side effects of these medications including no medications pt was in agreement. Pt was educated on the risks benefits and side-effects of lurasidone including TD and it can be permeant. Pt was in agreement with treatment plan. Pt noted that she is doing better today. Pt noted she slept 8 hours last night. Pt noted her appetite is okay. Pt rated her depression a "0, on a scale of zero to ten with ten being the worst and zero being none. Pt rate her anxiety a 5, on the same scale. Pt denied any auditory or visual. Pt denied any thoughts to harm herself or anyone else. Tobacco: 1-3 ciggs per day. 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 Speech: fluent, normal tone, normal rate Mood: better Affect: mood congruent Thought content: no HI noted, no SI noted, no delusions noted Psychosis: currently does not appear to be responding to internal stimuli. Thought Process: linear logical Goal oriented Judgment: Fair. Insight: fair. 1.Interval hx 2.Continue current medications 3.Review current labs 4.Pt had an opportunity to ask questions and discuss current treatment plan. 5.Supportive therapy was provided 6.Pt encouraged to consider group or individual therapy 7.Pt was in agreement with treatment plan. 8.Pt was educated on the risks benefits and side effects of current medications. 9.Continue to coordinate discharge planning. 10. take all medications as prescribed. 11. abstain from any alcohol or illicit substances. 12. Follow up with all scheduled appointments. Time spent discussing smoking cessation with patient: 3 to 10 minutes Does patient wish to continue nicotine replacement upon disc: No - Time Spent with Patient Total time spent providing and/or coordinating discharge services: Greater than 30 minutes Assessment and Plan - Patient/Caregiver Discharge Instructions Activity: resume usual activities as tolerated Diet: regular diet Additional Instructions: D/C home 07/12/2017 - Follow up Plan Follow up with: [facility] [Outside] - 08/23/17 3:00 pm (The above appointment is with Dr. Mccall for outpatient psychiatric assessment and medication management services. The above appointment reflects first availability. You may contact the office at regular intervals to check for cancellations that may allow you to be seen sooner.) [facility] [Outside] - 07/19/17 4:00 pm (The above appointment is with Lana Dominique for outpatient mental health counseling services. ) Overall status at discharge: Stable Disposition: Home, Self-Care Quality - Multiple Antipsychotics Patient discharged on 2 or more antipsychotic medications: No
== END 2017-07-12 12:55 | disposition home or self-care (01) | DRG 753 ==
LOC: EMEROO 06:25 → 1ANU 13:03 → SUATTDRO 13:03 → 1ANU 13:05
PROVIDERS: ADMIT Student in an Organized Health Care Education/Training Program; ATTEND General Practice

== ENCOUNTER 2018-10-01 16:01 | Observation (INO) ==
[2018-10-01] MEDS ORDERED: Ipratropium/Albuterol Neb 3 ML IH ONE (16:17)
[2018-10-01] MEDS ORDERED: 0.9 % Sodium Chloride 1,000 ML IVC ONE ×2 (16:17→17:40)
[2018-10-01] MEDS ORDERED: methylPREDNISolone 125 MG/2 ML VIAL IVP ONE (16:17)
--- NOTE | 2018-10-01 16:23 | Emergency Department Note ---
Disposition Clinical Impression: Acute exacerbation of chronic obstructive airways disease Disposition: Admitted As Inpatient Condition: Fair Referrals: Jonel Coleman MD [Primary Care Provider] - Time of Disposition: 17:59 SOB HPI - General Chief Complaint: ED Shortness of Breath/Dyspnea Stated Complaint: BERTA x 1 week Time Seen by Provider: 10/01/18 16:15 Source: patient, family Mode of arrival: private vehicle Limitations: no limitations Nursing Notes Reviewed: Yes Vital Signs Reviewed: Yes - History of Present Illness Patient presents for eval of cough, fever, dyspnea for a week. She states, "I've never been this sick before." She has seen her PCP for this twice and has been on several meds. She denies chest pain, orthopnea, syncope, leg pain or edema, recent travel or ill exposures. She has had similar, but much milder illnesses in the past - infrequently. She is anxious and tearful, but speaks in very long, complete sentences without pausing to breath. She is reclined on the cot in position of comfort and cites no improvement in dyspnea with an upright position. Pt Subjective Complaint: shortness of breath, cough Onset (ago): week(s) Context: recent illness (began with runny nose, sneezing and congestion, now just the cough and wheezing) Severity: moderate Consistency/Duration: constant Improves with: nothing Worsens with: nothing Associated symptoms: Reports: fever, cough, wheezing. Denies: chest pain, pain with inspiration, sputum production, orthopnea, lower extremity pain, polyuria, polydipsia, parasthesias, palpitations, hemoptysis, diaphoresis, nausea/vomiting, syncope, abdominal pain, rash, sense of impending doom Treatment prior to arrival: bronchodilator, other (Z-pack and Steroids from PCP last week) Cough present: Yes Cough Description: Involuntary, Non-Productive, Hacking, Wheezy Cough Frequency: Persistent Sputum production: No Sputum Amount: None - Related Data Home oxygen amount: none Home Medications Medication Instructions Recorded Confirmed Amlodipine Besylate 10 mg PO DAILY 07/07/17 06/15/18 Lisinopril [Zestril] 20 mg PO DAILY 07/07/17 06/15/18 Oxycodone HCl/Acetaminophen 1 tab PO 5XD 07/07/17 07/07/17 [Percocet 5-325 mg Tablet] Alprazolam XR [Xanax Xr] 3 mg PO BID 06/15/18 06/15/18 Ibuprofen [Ibu] 800 mg PO PRN PRN 06/15/18 06/15/18 Paliperidone [Paliperidone ER] 3 mg PO DAILY 06/15/18 06/15/18 Venlafaxine XR (24 HR) [Effexor XR] 75 mg PO DAILY 06/15/18 06/15/18 Albuterol Sulfate [Proventil 2 puff IH Q4HR PRN 10/01/18 10/01/18 Inhaler] Azithromycin [Zithromax] 250 mg PO DAILY 10/01/18 10/01/18 Cefdinir [Omnicef] 300 mg PO BID 10/01/18 10/01/18 Ipratropium/Albuterol Neb [Duoneb] 3 ml IH Q6HR PRN 10/01/18 10/01/18 LORazepam [Ativan] 1 mg PO BID PRN 10/01/18 10/01/18 OXcarbazepine [Oxcarbazepine] 900 mg PO HS 10/01/18 10/01/18 Omeprazole [PriLOSEC] 40 mg PO DAILY 10/01/18 10/01/18 Allergies Allergy/AdvReac Type Severity Reaction Status Date / Time pramipexole [From Mirapex] Allergy Seizure Verified 04/06/18 14:44 tetracycline [Tetracycline] Allergy Anaphylaxis Verified 04/06/18 14:44 aspirin AdvReac Gastrointestinal Verified 04/06/18 14:44 Upset All systems ED: reviewed and negative except as stated. Review of Systems: As Per HPI Constitutional: Reports: fever. Denies: chills, weakness, weight change, night sweats ENT ED: Denies: ear pain, throat pain, congestion, dysphagia Cardiovascular: Reports: as per HPI, dyspnea on exertion. Denies: chest pain, palpitations, orthopnea, edema, syncope Respiratory: Reports: as per HPI, cough, dyspnea, wheezes. Denies: hemoptysis, stridor, sputum production Gastrointestinal: Denies: abdominal pain, nausea, vomiting, diarrhea Genitourinary: Denies: dysuria Musculoskeletal: Denies: back pain, neck pain, joint swelling, arthralgia Integumentary: Denies: rash Neurological: Denies: headache, weakness, numbness, paresthesias, confusion, vertigo Hematological/Lymphatic: Denies: easy bleeding, easy bruising, lymphadenopathy Allergic/Immunologic: Denies: facial swelling, urticaria, itchy eyes Past Medical History - Past Medical History Attestation: Yes The following information was validated with the patient. Source: patient Medical history: Reports: non-contributory Surgical history: Reports: non-contributory, hysterectomy, orthopedic, other Psychiatric history: Reports: anxiety, bipolar, prior suicide attempt, previous psychiatric hospitalization [employer] history: Reports: non-contributory - Social History Smoking Status: Current every day smoker Smokeless Tobacco Status: No Alcohol use: Reports: none Drug use: Reports: none Physical Exam - General Limitations: no limitations General appearance: alert, in no apparent distress, anxious - Head Head exam: atraumatic, normocephalic, normal inspection - Eye Eye exam: Present: normal appearance. Absent: scleral icterus, conjunctival injection, periorbital swelling - ENT ENT exam: normal exam, normal oropharynx, mucous membranes moist - Neck Neck exam: Present: normal inspection, full ROM, trachea midline. Absent: tenderness, meningismus - Chest Chest inspection: Present: normal inspection, symmetric chest wall rise. Absent: tenderness - Respiratory Respiratory exam: Present: wheezes, accessory muscle use, prolonged expiratory phase. Absent: respiratory distress, stridor - Expanded Respiratory Exam Location: wheezes: Left, Right, Upper, Lower - Cardiovascular Cardiovascular exam: Present: normal rhythm, tachycardia, normal heart sounds - Extremities Exam Extremities exam: Present: normal inspection, normal capillary refill. Absent: pedal edema, joint swelling, calf tenderness - Back Exam Back exam: Present: normal inspection. Absent: tenderness - Neurological Exam Neurological exam: Present: alert, oriented X3, CN II-XII intact, normal gait - Psychiatric Psychiatric exam: Present: normal affect, anxious - Skin Skin exam: Present: warm, dry, intact, normal color Course Course Narrative: Patient with hx of severe anxiety - on 3 medications to help control anxiety - brought to ED by family member for eval of cough, wheezing and dyspnea x 1 week. She is a long-time smoker. She has seen her PCP for this illness twice and has been on two ABX. She was most recently given Azithromycin, Medrol and an Albuterol inhaler. She has had no improvement. Subjective fever, no N/V, no rash, no recent travel. No hx of DVT/PE. Well's Score is 1.5 - low risk. Will get CXR, ECG and check labs. Nebs ordered. 16:40 ECG reviewed by me and Attending shows a normal sinus rhythm with rate of 80, normal intervals, no ST elevation or depression. Unchanged compared to previous from 02/14. 17:14 Lactic acid is elevated. Suspect this is second to her prolonged dyspnea / increased work of breathing. WBC also elevated, but patient has been on Medrol Dose Pack for 4 days. TNI is normal. Case discussed with Dr. Pérez. He has had face to face time with the patient and agrees with the assessment and plan. He zara's ABG, Rocephin and admit. ABG ordered. RT called. Patient still anxious, but no longer hyperventillating. All vitals improved. Nurse reports that patient calmed down significantly once she learned she was being admitted. VSS. ABG shows resp alkylosis - most likely from the hyperventillating. Fluids given for elevated Lactic acid, but patient does not appear to be septic. No measured fever, no pain, - Reevaluation(s) Reevaluation #1: Much Less wheezing. Sats 96% on room air. Still anxious, but not tachypneic or crying. Time: 17:21 Vital Signs Temperature 98.0 F 10/01/18 16:01 Pulse Rate 102 10/01/18 16:01 Respiratory Rate 18 10/01/18 16:01 Blood Pressure 165/83 10/01/18 16:01 O2 Sat by Pulse Oximetry 95 10/01/18 16:01 Temperature 98.0 F 10/01/18 16:01 Pulse Rate 102 10/01/18 16:01 Respiratory Rate 18 10/01/18 16:01 Blood Pressure 165/83 10/01/18 16:01 O2 Sat by Pulse Oximetry 95 10/01/18 16:01 Oxygen Delivery Oxygen Delivery Room Air Shortness of Breath/Dyspnea - Medical Records Medical records reviewed: Yes I reviewed the patient's medical records. - Radiology Data Radiology results reviewed: Yes I reviewed the patient's radiology results. - EKG Data EKG attestation: Yes I reviewed and interpreted this EKG. EKG shows normal: Reports: sinus rhythm Rate: Reports: normal Rhythm: Reports: NSR [place]/QRS: Reports: normal When compared to previous EKG there are: no significant changes Interpretation: Reports: no acute changes, normal EKG
[2018-10-01 16:54] LABS: Basophils % 0.1 %; Eosinophils % 0.1 %; Hematocrit 33.7 % (35.3-44.9); Hemoglobin 11.1 g/dL (11.5-15.4); Immature Granulocytes % 1.1 % (0-4); Lymphocytes # 1.8 K/mcL (0.6-4.6); Lymphocytes % 10.5 %; Mean Corpuscular HGB Conc 32.9 g/dL (31.6-35.5); Mean Corpuscular Hemoglobin 28.8 pg (28.0-33.3); Mean Corpuscular Volume 87.3 fL (83.0-100.0); Monocytes # 0.4 K/mcL (0.0-1.3); Neutrophils # 14.7 K/mcL (1.6-8.9); Platelet Count 397 K/mcL (140-400); Red Blood Count 3.86 M/mcL (3.82-4.97); Red Cell Distribution Width 13.4 % (11.5-14.5); Segmented Neutrophils % 86.2 %; White Blood Count 17.1 K/mcL (4.3-11.1)
[2018-10-01] MEDS ORDERED: cefTRIAXone 1,000 MG in 0.9 % Sodium Chloride Mini Bag 100 ML IVPB ONE (17:11)
[2018-10-01 17:15] LABS: BUN/Creatinine Ratio 15 (6-26); Blood Urea Nitrogen 11 mg/dL (6-20); Calcium 8.9 mg/dL (8.6-10.3); Carbon Dioxide 18 mEq/L (23-29); Chloride 108 mEq/L (98-107); Glucose 184 mg/dL (70-105); Osmolality,Calculated 296 (280-300); Potassium 3.4 mEq/L (3.5-5.1); Sodium 141 mEq/L (136-145); Troponin I < 0.03 ng/mL (< 0.04); eGFR For African Americans > 60 (> 60); eGFR For Non-African Americans > 60 (> 60)
[2018-10-01 17:17] LABS: Bilirubin,Urine Negative (Negative); Blood,Urine Negative (Negative); Clarity,Urine Clear (Clear); Color,Urine Yellow (Yellow); Glucose,Urine (UA) Normal (Normal); Ketones,Urine Trace mg/dL (Negative); Leukocyte Esterase,Urine Trace (Negative); Nitrite,Urine Negative (Negative); Protein,Urine Trace mg/dL (Neg-Trace); Specific Gravity,Urine 1.028 (1.010-1.025); Urobilinogen,Urine Normal (Normal)
[2018-10-01 17:23] LABS: Bacteria,Urine None Seen per hpf (None-Few); Hyaline Casts,Urine None Seen per lpf (None-Few); Squamous Epithelial Cell,Urine Many per lpf (None-Few)
[2018-10-01 17:29] LABS: ABG Base Excess -3 mEq/L (-2 to 3); ABG HCO3 21 mEq/L (21-27); ABG Oxygen Saturation 92 % (95-98); ABG PCO2 30 mmHg (35-45); ABG PH 7.44 pH Units (7.32-7.45); ABG PO2 61 mmHg (85-104); ABG TCO2 22 mEq/L (20-26)
--- NOTE | 2018-10-01 17:51 | Internal Med History&Physical ---
Date of Encounter: 10/01/18 Time of Encounter: 17:51 Internal Medicine - H&P: HPI History of present illness: Ms. Collier is a 57 year old female with history of anxiety disorder and bipolar disorder presents for shortness of breath. Onset was 10 days ago. She was seen by primary care physician who prescribed antibiotics and IV in office steroids followed by a steroid taper, but patient did not get better. She was urged by her primary care physician to go into ED for further treatment of a COPD exacerbation. Patient stated she would like to try not to go to ED but since shortness of breath persisted she has now come in. She admits to sharp chest wall pain with cough. She denies any substernal pain, orthopnea, edema, dizziness, calf or leg tenderness. She has significant anxiety and very tearful on examination. In the ED she had a chest x-ray that was unremarkable. She had leukocytosis of 17k after getting some steroids in the past day. ABG showed pH 7.44, pCO2 30, pO2 61. Lactic acid was elevated at 4.7, procalcitonin was negative. Troponin was negative and EKG was unremarkable. She was afebrile. Urinalysis showed elevated specific gravity and urine ketones. She was given IV Solu Medrol, Duo Nebs, 1L Normal saline. Currently she is tearful but in no acute respiratory distress. Past Med Surg Social Fam HX - Past Medical History Medical history: hypertension Additional medical history: brain tumor hx Psychiatric history: anxiety, bipolar, depression, prior suicide attempt, previous psychiatric hospitalization - Past Surgical History Surgical History: non-contributory, hysterectomy, orthopedic, other Additional surgical history: back surgery, right shoulder surgery, left bicep repair, Brain tumor removed - Social History Smoking Status: Current every day smoker Smokeless Tobacco Status: No Alcohol use: none Drug use: none Internal Medicine - H&P: Meds Amlodipine Besylate 10 mg PO DAILY 07/07/17 [History] Lisinopril [Zestril] 20 mg PO DAILY 07/07/17 [History] Oxycodone HCl/Acetaminophen [Percocet 5-325 mg Tablet] 1 tab PO 5XD 07/07/17 [History] Alprazolam XR [Xanax Xr] 3 mg PO BID 06/15/18 [History] Ibuprofen [Ibu] 800 mg PO TID PRN 06/15/18 [History] Paliperidone [Paliperidone ER] 6 mg PO DAILY 06/15/18 [History] Venlafaxine XR (24 HR) [Effexor XR] 75 mg PO DAILY 06/15/18 [History] Albuterol Sulfate [Proventil Inhaler] 2 puff IH Q4HR PRN 10/01/18 [History] Azithromycin [Zithromax] 250 mg PO DAILY 10/01/18 [History] Cefdinir [Omnicef] 300 mg PO BID 10/01/18 [History] Ipratropium/Albuterol Neb [Duoneb] 3 ml IH Q6HR PRN 10/01/18 [History] LORazepam [Ativan] 1 mg PO BID PRN 10/01/18 [History] OXcarbazepine [Oxcarbazepine] 900 mg PO HS 10/01/18 [History] Omeprazole [PriLOSEC] 40 mg PO DAILY 10/01/18 [History] Allergy/AdvReac Type Severity Reaction Status Date / Time pramipexole [From Mirapex] Allergy Seizure Verified 04/06/18 14:44 tetracycline [Tetracycline] Allergy Anaphylaxis Verified 04/06/18 14:44 aspirin AdvReac Gastrointestinal Verified 04/06/18 14:44 Upset All Systems PM: A 10-system review of systems was performed and is negative for pertinent findings except as documented above in the HPI. - Constitutional Vitals: Temp Pulse Resp BP Pulse Ox 98.0 F 90 18 137/74 97 10/01/18 16:38 10/01/18 17:12 10/01/18 17:12 10/01/18 17:12 10/01/18 17:12 General appearance: Present: A&O X 3, no acute distress Exam: . - Head Head exam: Present: atraumatic, normocephalic - Eye Eye exam: Present: PERRL, conjuntiva pink, sclera anicteric Pupils: Present: PERRL - Neck Neck exam general surgery: Present: supple, trachea midline. Absent: lymphadenopathy - Respiratory Respiratory exam: Present: decreased breath sounds, prolonged expiratory phase, wheezes. Absent: accessory muscle use, rales, rhonchi - Cardiovascular Cardiovascular exam: Present: RRR, +S1, +S2. Absent: diastolic murmur, gallop, rubs, systolic murmur - GI/Abdominal GI/Abdominal exam: Present: normal bowel sounds, soft, no peritoneal signs. Absent: distended, tenderness - Extremities Exam Extremities exam: Present: warm, radial pulses palpable and symmetrical. Absent: calf tenderness, cyanotic, pedal edema - Neurological Exam Neurological exam: Present: CN II-XII intact, oriented X3, no focal deficits. Absent: pronater drift, facial droop, speech deficit - Skin Skin exam: Present: dry, intact Internal Med - H&P Results - Labs CBC & Chem 7: 10/01/18 16:34 10/01/18 16:34 Labs: Short CBC 10/01/18 Range/Units 16:34 WBC 17.1 H (4.3-11.1) K/mcL Hgb 11.1 L (11.5-15.4) g/dL Hct 33.7 L (35.3-44.9) % Plt Count 397 (140-400) K/mcL Neutrophils # 14.7 H (1.6-8.9) K/mcL BMP 10/01/18 16:34 Sodium 141 Potassium 3.4 L Chloride 108 H Carbon Dioxide 18 L BUN 11 Creatinine 0.74 Glucose 184 H Calcium 8.9 Cardiac Enzymes 10/01/18 Range/Units 16:34 Troponin I < 0.03 (< 0.04) ng/mL Urine 10/01/18 Range/Units 17:10 Urine Color Yellow (Yellow) Urine Clarity Clear (Clear) Urine pH 6.0 (5.0-8.0) pH Units Ur Specific [place] 1.028 H (1.010-1.025) Urine Protein Trace (Neg-Trace) mg/dL Urine Glucose (UA) Normal (Normal) mg/dL - ABG Interpretation ABG results: 10/01/18 17:26 ABG pH 7.44 ABG pCO2 30 L ABG pO2 61 L ABG HCO3 21 ABG Total CO2 22 ABG O2 Saturation 92 L ABG Base Excess -3 L - Assessment and Plan (1) Acute exacerbation of chronic obstructive airways disease Current Visit: Yes Status: Acute Assessment and plan: Patient is a current smoker and symptoms are likely worsened by this. Other triggers currently not identified. Procalcitonin is negative suggesting against a bacterial infectious process. Lactic acid was elevated likely from respiratory distress as patient is afebrile and ABG were consistent with her hyperventilation from anxiety. Will need treatment for COPD exacerbation. Continue IV Solu Medrol. Duo Nebs scheduled and prn. If respiratory status does not improve, may need to seek other etiologies of SOB. (2) Bipolar II disorder Current Visit: No Status: Acute (3) Generalized anxiety disorder Current Visit: No Status: Acute Assessment and plan: Resume home medications. (4) DVT prophylaxis Current Visit: Yes Status: Acute Assessment and plan: SQ Heparin (5) Lactic acidosis Current Visit: Yes Status: Acute Assessment and plan: likely secondary to respiratory distress and dehydration. Continue IV fluids Respiratory treatment as above. Recheck in 4 hours - Time Spent With Patient Total time spent is greater than 50% in coordination of care (as documented) at patient's floor/unit and/or counseling patient:
[2018-10-01] MEDS ORDERED: Naloxone 0.4 MG/ML INJ IVP PRN (17:52)
[2018-10-01] MEDS ORDERED: Nitroglycerin 0.4 MG TAB.SUBL SL PRN (17:55)
[2018-10-01] MEDS ORDERED: *HR* Metoprolol 5 MG/5 ML VIAL IVP PRN (17:55)
[2018-10-01] MEDS ORDERED: Ondansetron 4 MG/2 ML VIAL IVP PRN (17:55)
[2018-10-01] MEDS ORDERED: *HR* LORazepam 2 MG/ML VIAL IVP ONE (18:30)
--- NOTE | 2018-10-01 19:55 | Emergency Department Note ---
Disposition Clinical Impression: Acute exacerbation of chronic obstructive airways disease Disposition: Admitted As Inpatient Condition: Fair Time of Disposition: 17:59 General Adult HPI - General Chief complaint: ED Shortness of Breath/Dyspnea Stated complaint: BERTA x 1 week Time Seen by Provider: 10/01/18 16:15 Source: patient, family Mode of arrival: private vehicle Limitations: no limitations - History of Present Illness Pain Scale: 0 - Related Data Home Medications Medication Instructions Recorded Confirmed Amlodipine Besylate 10 mg PO DAILY 07/07/17 10/01/18 Lisinopril [Zestril] 20 mg PO DAILY 07/07/17 10/01/18 Oxycodone HCl/Acetaminophen 1 tab PO 5XD 07/07/17 10/01/18 [Percocet 5-325 mg Tablet] Alprazolam XR [Xanax Xr] 3 mg PO BID 06/15/18 10/01/18 Ibuprofen [Ibu] 800 mg PO TID PRN 06/15/18 10/01/18 Paliperidone [Paliperidone ER] 6 mg PO DAILY 06/15/18 10/01/18 Venlafaxine XR (24 HR) [Effexor XR] 75 mg PO DAILY 06/15/18 10/01/18 Albuterol Sulfate [Proventil 2 puff IH Q4HR PRN 10/01/18 10/01/18 Inhaler] Azithromycin [Zithromax] 250 mg PO DAILY 10/01/18 10/01/18 Cefdinir [Omnicef] 300 mg PO BID 10/01/18 10/01/18 Ipratropium/Albuterol Neb [Duoneb] 3 ml IH Q6HR PRN 10/01/18 10/01/18 LORazepam [Ativan] 1 mg PO BID PRN 10/01/18 10/01/18 OXcarbazepine [Oxcarbazepine] 900 mg PO HS 10/01/18 10/01/18 Omeprazole [PriLOSEC] 40 mg PO DAILY 10/01/18 10/01/18 Allergies Allergy/AdvReac Type Severity Reaction Status Date / Time pramipexole [From Mirapex] Allergy Seizure Verified 04/06/18 14:44 tetracycline [Tetracycline] Allergy Anaphylaxis Verified 04/06/18 14:44 aspirin AdvReac Gastrointestinal Verified 02/06/19 14:44 Upset Constitutional: Reports: fever. Denies: chills, weakness, weight change, night sweats ENT ED: Denies: ear pain, throat pain, congestion, dysphagia Cardiovascular: Reports: as per HPI, dyspnea on exertion. Denies: chest pain, palpitations, orthopnea, edema, syncope Respiratory: Reports: as per HPI, cough, dyspnea, wheezes. Denies: hemoptysis, stridor, sputum production Gastrointestinal: Denies: abdominal pain, nausea, vomiting, diarrhea Genitourinary: Denies: dysuria Musculoskeletal: Denies: back pain, neck pain, joint swelling, arthralgia Integumentary: Denies: rash Neurological: Denies: headache, weakness, numbness, paresthesias, confusion, vertigo Hematological/Lymphatic: Denies: easy bleeding, easy bruising, lymphadenopathy Allergic/Immunologic: Denies: facial swelling, urticaria, itchy eyes Past Medical History - Past Medical History Medical history: Reports: hypertension Surgical history: Reports: non-contributory, hysterectomy, orthopedic, other Psychiatric history: Reports: anxiety, bipolar, depression, prior suicide attempt, previous psychiatric hospitalization [employer] history: Reports: non-contributory - Social History Smoking Status: Current every day smoker Smokeless Tobacco Status: No Alcohol use: Reports: none Drug use: Reports: none Physical Exam - General Limitations: no limitations General appearance: alert, in no apparent distress, anxious Course Vital Signs Temperature 98.0 F 10/01/18 16:01 Pulse Rate 102 10/01/18 16:01 Respiratory Rate 18 10/01/18 16:01 Blood Pressure 165/83 10/01/18 16:01 O2 Sat by Pulse Oximetry 95 10/01/18 16:01 Temperature 98.6 F 10/01/18 20:21 Pulse Rate 85 10/01/18 20:21 Respiratory Rate 17 10/01/18 20:21 Blood Pressure 127/69 10/01/18 20:21 O2 Sat by Pulse Oximetry 95 10/01/18 20:21 Oxygen Delivery Oxygen Delivery Room Air Medical Decision Making - Lab Data Result diagrams: 10/01/18 16:34 10/01/18 16:34 Lab Results 10/01/18 10/01/18 10/01/18 Range/Units 16:34 16:34 16:34 WBC 17.1 H (4.3-11.1) K/mcL RBC 3.86 (3.82-4.97) M/mcL Hgb 11.1 L (11.5-15.4) g/dL Hct 33.7 L (35.3-44.9) % MCV 87.3 (83.0-100.0) fL MCH 28.8 (28.0-33.3) pg MCHC 32.9 (31.6-35.5) g/dL RDW 13.4 (11.5-14.5) % Plt Count 397 (140-400) K/mcL MPV 9.0 L (9.4-12.4) fL Immature Gran % 1.1 (0-4) % Seg Neutrophils % 86.2 % Lymphocytes % 10.5 % Monocytes % 2.0 % Eosinophils % 0.1 % Basophils % 0.1 % Neutrophils # 14.7 H (1.6-8.9) K/mcL Lymphocytes # 1.8 (0.6-4.6) K/mcL Monocytes # 0.4 (0.0-1.3) K/mcL Eosinophils # 0.0 (0.0-0.6) K/mcL Basophils # 0.0 (0.0-0.2) K/mcL Sample Site ABG pH (7.32-7.45) pH Units ABG pCO2 (35-45) mmHg ABG pO2 (85-104) mmHg ABG HCO3 (21-27) mEq/L ABG Total CO2 (20-26) mEq/L ABG O2 Saturation (95-98) % ABG Base Excess (-2 to 3) mEq/L Nickolas Test Inspired O2 (1-15=lpm [id number]=%) Sodium 141 (136-145) mEq/L Potassium 3.4 L (3.5-5.1) mEq/L Chloride 108 H (98-107) mEq/L Carbon Dioxide 18 L (23-29) mEq/L BUN 11 (6-20) mg/dL Creatinine 0.74 (0.60-1.20) mg/dL Est GFR ( Amer) > 60 (> 60) Est GFR (Non-Af Amer) > 60 (> 60) BUN/Creatinine Ratio 15 (6-26) Glucose 184 H (70-105) mg/dL Calculated Osmolality 296 (280-300) Lactic Acid (0.5-2.2) mmol/L Calcium 8.9 (8.6-10.3) mg/dL Troponin I < 0.03 (< 0.04) ng/mL B-Natriuretic Peptide 122 H (Less than 100) pg/mL Procalcitonin (0.00-0.15) ng/mL Urine Color (Yellow) Urine Clarity (Clear) Urine pH (5.0-8.0) pH Units Ur Specific [place] (1.010-1.025) Urine Protein (Neg-Trace) mg/dL Urine Glucose (UA) (Normal) mg/dL Urine Ketones (Negative) mg/dL Urine Blood (Negative) Urine Nitrite (Negative) Urine Bilirubin (Negative) Urine Urobilinogen (Normal) mg/dL Ur Leukocyte Esterase (Negative) Urine Microscopic RBC (0-3) per hpf Urine Microscopic WBC (0-3) per hpf Ur Squamous Epith Cells (None-Few) per lpf Urine Bacteria (None-Few) per hpf Hyaline Casts (None-Few) per lpf Ur Culture Indicated? (NO) 10/01/18 10/01/18 10/01/18 Range/Units 16:34 16:38 17:10 WBC (4.3-11.1) K/mcL RBC (3.82-4.97) M/mcL Hgb (11.5-15.4) g/dL Hct (35.3-44.9) % MCV (83.0-100.0) fL MCH (28.0-33.3) pg MCHC (31.6-35.5) g/dL RDW (11.5-14.5) % Plt Count (140-400) K/mcL MPV (9.4-12.4) fL Immature Gran % (0-4) % Seg Neutrophils % % Lymphocytes % % Monocytes % % Eosinophils % % Basophils % % Neutrophils # (1.6-8.9) K/mcL Lymphocytes # (0.6-4.6) K/mcL Monocytes # (0.0-1.3) K/mcL Eosinophils # (0.0-0.6) K/mcL Basophils # (0.0-0.2) K/mcL Sample Site ABG pH (7.32-7.45) pH Units ABG pCO2 (35-45) mmHg ABG pO2 (85-104) mmHg ABG HCO3 (21-27) mEq/L ABG Total CO2 (20-26) mEq/L ABG O2 Saturation (95-98) % ABG Base Excess (-2 to 3) mEq/L Nickolas Test Inspired O2 (1-15=lpm [id number]=%) Sodium (136-145) mEq/L Potassium (3.5-5.1) mEq/L Chloride (98-107) mEq/L Carbon Dioxide (23-29) mEq/L BUN (6-20) mg/dL Creatinine (0.60-1.20) mg/dL Est GFR ( Amer) (> 60) Est GFR (Non-Af Amer) (> 60) BUN/Creatinine Ratio (6-26) Glucose (70-105) mg/dL Calculated Osmolality (280-300) Lactic Acid 4.7 H* (0.5-2.2) mmol/L Calcium (8.6-10.3) mg/dL Troponin I (< 0.04) ng/mL B-Natriuretic Peptide (Less than 100) pg/mL Procalcitonin 0.03 (0.00-0.15) ng/mL Urine Color Yellow (Yellow) Urine Clarity Clear (Clear) Urine pH 6.0 (5.0-8.0) pH Units Ur Specific [place] 1.028 H (1.010-1.025) Urine Protein Trace (Neg-Trace) mg/dL Urine Glucose (UA) Normal (Normal) mg/dL Urine Ketones Trace H (Negative) mg/dL Urine Blood Negative (Negative) Urine Nitrite Negative (Negative) Urine Bilirubin Negative (Negative) Urine Urobilinogen Normal (Normal) mg/dL Ur Leukocyte Esterase Trace H (Negative) Urine Microscopic RBC 3-5 H (0-3) per hpf Urine Microscopic WBC 3-5 H (0-3) per hpf Ur Squamous Epith Cells Many H (None-Few) per lpf Urine Bacteria None Seen (None-Few) per hpf Hyaline Casts None Seen (None-Few) per lpf Ur Culture Indicated? YES A (NO) 10/01/18 Range/Units 17:26 WBC (4.3-11.1) K/mcL RBC (3.82-4.97) M/mcL Hgb (11.5-15.4) g/dL Hct (35.3-44.9) % MCV (83.0-100.0) fL MCH (28.0-33.3) pg MCHC (31.6-35.5) g/dL RDW (11.5-14.5) % Plt Count (140-400) K/mcL MPV (9.4-12.4) fL Immature Gran % (0-4) % Seg Neutrophils % % Lymphocytes % % Monocytes % % Eosinophils % % Basophils % % Neutrophils # (1.6-8.9) K/mcL Lymphocytes # (0.6-4.6) K/mcL Monocytes # (0.0-1.3) K/mcL Eosinophils # (0.0-0.6) K/mcL Basophils # (0.0-0.2) K/mcL Sample Site L Radial ABG pH 7.44 (7.32-7.45) pH Units ABG pCO2 30 L (35-45) mmHg ABG pO2 61 L (85-104) mmHg ABG HCO3 21 (21-27) mEq/L ABG Total CO2 22 (20-26) mEq/L ABG O2 Saturation 92 L (95-98) % ABG Base Excess -3 L (-2 to 3) mEq/L Nickolas Test Positive Inspired O2 21.0 (1-15=lpm [id number]=%) Sodium (136-145) mEq/L Potassium (3.5-5.1) mEq/L Chloride (98-107) mEq/L Carbon Dioxide (23-29) mEq/L BUN (6-20) mg/dL Creatinine (0.60-1.20) mg/dL Est GFR ( Amer) (> 60) Est GFR (Non-Af Amer) (> 60) BUN/Creatinine Ratio (6-26) Glucose (70-105) mg/dL Calculated Osmolality (280-300) Lactic Acid (0.5-2.2) mmol/L Calcium (8.6-10.3) mg/dL Troponin I (< 0.04) ng/mL B-Natriuretic Peptide (Less than 100) pg/mL Procalcitonin (0.00-0.15) ng/mL Urine Color (Yellow) Urine Clarity (Clear) Urine pH (5.0-8.0) pH Units Ur Specific [place] (1.010-1.025) Urine Protein (Neg-Trace) mg/dL Urine Glucose (UA) (Normal) mg/dL Urine Ketones (Negative) mg/dL Urine Blood (Negative) Urine Nitrite (Negative) Urine Bilirubin (Negative) Urine Urobilinogen (Normal) mg/dL Ur Leukocyte Esterase (Negative) Urine Microscopic RBC (0-3) per hpf Urine Microscopic WBC (0-3) per hpf Ur Squamous Epith Cells (None-Few) per lpf Urine Bacteria (None-Few) per hpf Hyaline Casts (None-Few) per lpf Ur Culture Indicated? (NO) Attestation Statement - Attestation Attestation: I have personally performed a face to face evaluation on this patient. I have reviewed and agree with the care plan. History and Exam by me shows: Patient 57-year-old female presents to emergency department with chief complaint of shortness of breath the patient reports she has been having symptoms for the last week and has not been improving Exam patient is awake alert anxious in no acute distress Medical decision management the patient underwent laboratory testing and breathing treatments the patient with her elevated lactate will be admitted to the hospitalist service for COPD exacerbation
[2018-10-01] MEDS: Ipratropium/Albuterol Neb 3 ML IH SCH ×2 (20:22→23:53)
[2018-10-01] MEDS: *HR* Heparin 5,000 UNIT/ML VIAL SQ SCH (20:32)
[2018-10-01] MEDS: *HR* OxyCODONE/APAP 5/325 TABLET PO SCH (20:33)
[2018-10-01] MEDS: 0.9 % Sodium Chloride 1,000 ML IVC SCH (20:33)
[2018-10-01] MEDS: ALPRAZolam 1 MG TABLET PO SCH (22:15)
[2018-10-01] MEDS: OXcarbazepine 150 MG TABLET PO SCH (22:17)
[2018-10-01 23:27] LABS: Adenovirus Not Detected (Not Detect); Bordetella Pertussis Not Detected (Not Detect); Chlamydophila pneumoniae Not Detected (Not Detect); Coronavirus 229E Not Detected (Not Detect); Coronavirus HKU1 Not Detected (Not Detect); Coronavirus NL63 Not Detected (Not Detect); Coronavirus OC43 Not Detected (Not Detect); Human Metapneumovirus Not Detected (Not Detect); Human Rhinovirus/Enterovirus DETECTED (Not Detect); Influenza A Subtype 2009 H1 Not Detected (Not Detect); Influenza A Untypeable Not Detected (Not Detect); Influenza B Not Detected (Not Detect); Mycoplasma pneumoniae Not Detected (Not Detect); Parainfluenza Virus 1 Not Detected (Not Detect); Parainfluenza Virus 2 Not Detected (Not Detect); Parainfluenza Virus 3 Not Detected (Not Detect); Parainfluenza Virus 4 Not Detected (Not Detect); Respiratory Syncytial Virus Not Detected (Not Detect)
[2018-10-02] MEDS ORDERED: Acetaminophen 325 MG TABLET PO ONE (00:24)
[2018-10-02] MEDS: MethylPREDNISolone 40 MG/ML VIAL IVP SCH ×3 (00:34→17:00)
[2018-10-02] MEDS: *HR* OxyCODONE/APAP 5/325 TABLET PO SCH ×5 (00:42→21:21)
[2018-10-02] MEDS: *HR* LORazepam 1 MG TABLET PO PRN (00:46)
[2018-10-02] MEDS: Ipratropium/Albuterol Neb 3 ML IH SCH ×6 (03:14→23:09)
[2018-10-02] MEDS: 0.9 % Sodium Chloride 1,000 ML IVC SCH (05:55)
[2018-10-02] MEDS: ALPRAZolam 1 MG TABLET PO SCH ×3 (05:56→17:00)
[2018-10-02] MEDS: *HR* Heparin 5,000 UNIT/ML VIAL SQ SCH ×2 (05:56→17:00)
[2018-10-02 07:40] LABS: Basophils % 0.1 %; Eosinophils % 0.1 %; Hematocrit 32.5 % (35.3-44.9); Hemoglobin 10.3 g/dL (11.5-15.4); Immature Granulocytes % 1.8 % (0-4); Lymphocytes # 2.1 K/mcL (0.6-4.6); Lymphocytes % 14.5 %; Mean Corpuscular HGB Conc 31.7 g/dL (31.6-35.5); Mean Corpuscular Hemoglobin 29.1 pg (28.0-33.3); Mean Corpuscular Volume 91.8 fL (83.0-100.0); Monocytes # 0.4 K/mcL (0.0-1.3); Monocytes % 3.1 %; Neutrophils # 11.5 K/mcL (1.6-8.9); Platelet Count 360 K/mcL (140-400); Red Blood Count 3.54 M/mcL (3.82-4.97); Red Cell Distribution Width 13.8 % (11.5-14.5); Segmented Neutrophils % 80.4 %; White Blood Count 14.3 K/mcL (4.3-11.1)
[2018-10-02 07:56] LABS: BUN/Creatinine Ratio 17 (6-26); Blood Urea Nitrogen 10 mg/dL (6-20); Calcium 8.7 mg/dL (8.6-10.3); Carbon Dioxide 20 mEq/L (23-29); Chloride 111 mEq/L (98-107); Glucose 137 mg/dL (70-105); Osmolality,Calculated 293 (280-300); Potassium 3.8 mEq/L (3.5-5.1); Sodium 141 mEq/L (136-145); eGFR For African Americans > 60 (> 60); eGFR For Non-African Americans > 60 (> 60)
[2018-10-02] MEDS: Venlafaxine XR (24 HR) 75 MG CAP.ER.24H PO SCH (07:56)
[2018-10-02] MEDS: Lisinopril 20 MG TABLET PO SCH (07:56)
[2018-10-02] MEDS: amLODIPine 5 MG TABLET PO SCH (07:57)
[2018-10-02] MEDS ORDERED: Isovue-370 500 ML BOTTLE IVP ONE ×2 (09:06→10:58)
--- NOTE | 2018-10-02 09:17 | Internal Med Progress Note ---
Hospitalist Progress Note - Encounter Date of Encounter: 10/02/18 Time of Encounter: 09:14 - Subjective Interval History: Seen and examined at bedside. Patient is new to me, information obtained from chart review and patient report. Says she is still short of breath and not improve much. Very tearful - Exam Vitals: Temp Pulse Resp BP Pulse Ox 97.4 F L 79 18 148/90 97 10/02/18 08:21 10/02/18 08:21 10/02/18 08:32 10/02/18 04:15 10/02/18 08:32 Exam: General appearance: Present: A&O X 3, pleasant, appears anxious and tearful. - Head Head exam: Present: atraumatic, normocephalic - Eye Eye exam: Present: PERRL, conjuntiva pink, sclera anicteric Pupils: Present: PERRL - Neck Neck exam general surgery: Present: supple, trachea midline. Absent: lymphadenopathy - Respiratory Respiratory exam: Lung sounds diminished with diffuse wheezing - Cardiovascular Cardiovascular exam: Present: RRR, +S1, +S2. Absent: diastolic murmur, gallop, rubs, systolic murmur - GI/Abdominal GI/Abdominal exam: Present: normal bowel sounds, soft, no peritoneal signs. Absent: distended, tenderness - Extremities Exam Extremities exam: Present: warm, radial pulses palpable and symmetrical. Absent: calf tenderness, cyanotic, pedal edema - Neurological Exam Neurological exam: Present: CN II-XII intact, oriented X3, no focal deficits. Absent: pronater drift, facial droop, speech deficit - Skin Skin exam: Present: dry, intact - Assessment and Plan (1) Acute exacerbation of chronic obstructive airways disease Current Visit: Yes Status: Acute Assessment and Plan: Patient is a current smoker and symptoms are likely worsened by this. Pro- calcitonin negative however patient was on steroids prior to hospitalization. Lactic acid was elevated likely from respiratory distress as patient is afebrile and ABG were consistent with her hyperventilation from anxiety. Will need treatment for COPD exacerbation. Continue IV steroids, hold on ATB at this time. Chest CT pending. Consult pulmonology if needed (2) Lactic acidosis Current Visit: Yes Status: Acute Assessment and Plan: likely secondary to respiratory distress and dehydration. Repeat lactic acid trended down with IV fluids. (3) Bipolar II disorder Current Visit: No Status: Acute Assessment and Plan: per hx. Pt very tearful on exam. Cont home medication regimen (4) Generalized anxiety disorder Current Visit: No Status: Acute Assessment and Plan: per hx. Resume home medications. (5) DVT prophylaxis Current Visit: Yes Status: Acute Assessment and Plan: heparin - Time Spent with Patient Total time spent is greater than 50% in coordination of care (as documented) at patient's floor/unit and/or counseling patient: Internal Medicine: Result - Labs CBC & Chem 7: 10/02/18 06:39 10/02/18 06:39 Labs: Short CBC 10/01/18 10/02/18 Range/Units 16:34 06:39 WBC 17.1 H 14.3 H (4.3-11.1) K/mcL Hgb 11.1 L 10.3 L (11.5-15.4) g/dL Hct 33.7 L 32.5 L (35.3-44.9) % Plt Count 397 360 (140-400) K/mcL Neutrophils # 14.7 H 11.5 H (1.6-8.9) K/mcL BMP 10/01/18 10/02/18 16:34 06:39 Sodium 141 141 Potassium 3.4 L 3.8 Chloride 108 H 111 H Carbon Dioxide 18 L 20 L BUN 11 10 Creatinine 0.74 0.60 Glucose 184 H 137 H Calcium 8.9 8.7 Cardiac Enzymes 10/01/18 Range/Units 16:34 Troponin I < 0.03 (< 0.04) ng/mL Urine 10/01/18 Range/Units 17:10 Urine Color Yellow (Yellow) Urine Clarity Clear (Clear) Urine pH 6.0 (5.0-8.0) pH Units Ur Specific [place] 1.028 H (1.010-1.025) Urine Protein Trace (Neg-Trace) mg/dL Urine Glucose (UA) Normal (Normal) mg/dL - ABG Interpretation ABG results: ABG ABG pH 7.44 pH Units (7.32-7.45) 10/01/18 17:26 ABG pCO2 30 mmHg (35-45) L 10/01/18 17:26 ABG pO2 61 mmHg (85-104) L 10/01/18 17:26 ABG O2 Saturation 92 % (95-98) L 10/01/18 17:26 Consult Discharge Plan - Plan Referrals: Jonel Coleman MD [Primary Care Provider] -
[2018-10-02] MEDS: Fluticasone Propionate Nasal 50 MCG/SPRAY BOTTLE NS SCH (09:53)
--- NOTE | 2018-10-02 17:11 | Event Note ---
Date of Encounter: 10/02/18 Time of Encounter: 17:10 CTA concerning for pneumonia or pulmonary edema. Clinically symptoms appear to be more consistent with pneumonia. Start IV Levaquin. Echo pending
[2018-10-02] MEDS: levoFLOXacin 750 MG/150 ML 750 MG/150 ML BAG IVPB SCH (18:15)
[2018-10-02] MEDS: OXcarbazepine 150 MG TABLET PO SCH (21:21)
[2018-10-03] MEDS: ALPRAZolam 1 MG TABLET PO SCH ×5 (00:24→23:48)
[2018-10-03] MEDS: *HR* OxyCODONE/APAP 5/325 TABLET PO SCH ×6 (00:24→23:48)
[2018-10-03] MEDS: MethylPREDNISolone 40 MG/ML VIAL IVP SCH (00:24)
[2018-10-03] MEDS: Ipratropium/Albuterol Neb 3 ML IH SCH ×5 (03:41→20:11)
[2018-10-03] MEDS: *HR* Heparin 5,000 UNIT/ML VIAL SQ SCH ×2 (06:37→18:06)
[2018-10-03 06:38] LABS: Hematocrit 32.8 % (35.3-44.9); Hemoglobin 10.5 g/dL (11.5-15.4); Mean Corpuscular Volume 90.6 fL (83.0-100.0); Mean Platelet Volume 8.5 fL (9.4-12.4); Platelet Count 336 K/mcL (140-400); Red Blood Count 3.62 M/mcL (3.82-4.97); Red Cell Distribution Width 13.7 % (11.5-14.5); White Blood Count 11.8 K/mcL (4.3-11.1)
[2018-10-03 07:00] LABS: Alanine Aminotransferase 19 Units/L (7-52); Albumin 3.7 g/dL (3.5-5.7); Albumin/Globulin Ratio 1.4 (1.1-2.2); Alkaline Phosphatase 76 Units/L (34-104); Aspartate Amino Transferase 14 Units/L (13-39); BUN/Creatinine Ratio 18 (6-26); Bilirubin,Total 0.2 mg/dL (0.3-1.0); Blood Urea Nitrogen 11 mg/dL (6-20); Carbon Dioxide 25 mEq/L (23-29); Chloride 106 mEq/L (98-107); Globulin 2.7 g/dL (2.4-3.5); Glucose 151 mg/dL (70-105); Osmolality,Calculated 296 (280-300); Potassium 4.3 mEq/L (3.5-5.1); Sodium 142 mEq/L (136-145); Total Protein 6.4 g/dL (6.4-8.9); eGFR For African Americans > 60 (> 60); eGFR For Non-African Americans > 60 (> 60)
[2018-10-03] MEDS: *HR* LORazepam 1 MG TABLET PO PRN ×2 (09:36→20:01)
[2018-10-03] MEDS: Venlafaxine XR (24 HR) 75 MG CAP.ER.24H PO SCH (09:37)
[2018-10-03] MEDS: amLODIPine 5 MG TABLET PO SCH (09:37)
[2018-10-03] MEDS: predniSONE 20 MG TABLET PO SCH (09:37)
[2018-10-03] MEDS: Lisinopril 20 MG TABLET PO SCH (09:38)
[2018-10-03] MEDS: Fluticasone Propionate Nasal 50 MCG/SPRAY BOTTLE NS SCH (09:38)
[2018-10-03] MEDS: levoFLOXacin 750 MG/150 ML 750 MG/150 ML BAG IVPB SCH (09:43)
--- NOTE | 2018-10-03 09:43 | Internal Med Progress Note ---
Hospitalist Progress Note - Encounter Date of Encounter: 10/03/18 Time of Encounter: 09:43 - Subjective Interval History: Patient seen and examined in the room. She reported dry cough, generalized weakness, and wheezing. She also reported she started smoking about 4 years ago and currently still smoking. She has no fever, chills, or night sweats overnight. Her wheezing and cough have slightly improved with the treatment. - Exam Vitals: Temp Pulse Resp BP Pulse Ox 97.7 F 71 16 154/83 95 10/03/18 07:00 10/03/18 07:00 10/03/18 07:00 10/03/18 07:00 10/03/18 07:00 Exam: General appearance: Present: A&O X 3, pleasant, appears anxious and tearful. - Head Head exam: Present: atraumatic, normocephalic - Eye Eye exam: Present: PERRL, conjuntiva pink, sclera anicteric Pupils: Present: PERRL - Neck Neck exam general surgery: Present: supple, trachea midline. Absent: lymphadenopathy - Respiratory Respiratory exam: Lung sounds diminished with diffuse wheezing - Cardiovascular Cardiovascular exam: Present: RRR, +S1, +S2. Absent: diastolic murmur, gallop, rubs, systolic murmur - GI/Abdominal GI/Abdominal exam: Present: normal bowel sounds, soft, no peritoneal signs. Absent: distended, tenderness - Extremities Exam Extremities exam: Present: warm, radial pulses palpable and symmetrical. Absent: calf tenderness, cyanotic, pedal edema - Neurological Exam Neurological exam: Present: CN II-XII intact, oriented X3, no focal deficits. Absent: pronater drift, facial droop, speech deficit - Skin Skin exam: Present: dry, intact - Assessment and Plan (1) Bipolar II disorder Current Visit: No Status: Acute Assessment and Plan: per hx. Pt tearful on exam and as stated that she was scared of her current illness. Cont home medication regimen. (2) Generalized anxiety disorder Current Visit: No Status: Acute Assessment and Plan: per hx. Resume home medications. (3) Acute exacerbation of chronic obstructive airways disease Current Visit: Yes Status: Acute Assessment and Plan: Patient is a current smoker and symptoms are likely worsened by this. Pro- calcitonin negative however patient was on steroids prior to hospitalization. Lactic acid was elevated likely from respiratory distress as patient is afebrile and ABG were consistent with her hyperventilation from anxiety. Will need treatment for COPD exacerbation. CT of chest favors the possibility of pneumonia versus pulmonary edema. IV Levaquin was started. Patient respiratory symptoms have improved, downgraded IV steroids to oral prednisone. Pending echocardiogram. Patient symptoms have not resolved, she needs extended hospitalization. (4) DVT prophylaxis Current Visit: Yes Status: Acute Assessment and Plan: heparin (5) Lactic acidosis Current Visit: Yes Status: Acute Assessment and Plan: likely secondary to respiratory distress and dehydration. Improved with IV fluid. - Time Spent with Patient Total time spent is greater than 50% in coordination of care (as documented) at patient's floor/unit and/or counseling patient: Greater than 35 minutes Plan of Care Discussed with: patient Internal Medicine: Result - Labs CBC & Chem 7: 10/03/18 06:24 10/03/18 06:24 Labs: Short CBC 10/03/18 Range/Units 06:24 WBC 11.8 H (4.3-11.1) K/mcL Hgb 10.5 L (11.5-15.4) g/dL Hct 32.8 L (35.3-44.9) % Plt Count 336 (140-400) K/mcL BMP 10/03/18 06:24 Sodium 142 Potassium 4.3 Chloride 106 Carbon Dioxide 25 BUN 11 Creatinine 0.61 Glucose 151 H Calcium 9.0 Liver Function 10/03/18 Range/Units 06:24 Total Bilirubin 0.2 L (0.3-1.0) mg/dL AST 14 (13-39) Units/L ALT 19 (7-52) Units/L Alkaline Phosphatase 76 (34-104) Units/L Albumin 3.7 (3.5-5.7) g/dL - ABG Interpretation ABG results: ABG ABG pH 7.44 pH Units (7.32-7.45) 10/01/18 17:26 ABG pCO2 30 mmHg (35-45) L 10/01/18 17:26 ABG pO2 61 mmHg (85-104) L 10/01/18 17:26 ABG O2 Saturation 92 % (95-98) L 10/01/18 17:26 - Impressions Impressions Chest CTA 10/02/18 09:06 IMPRESSION: 1. No CT evidence of a pulmonary embolism. 2. Small bilateral pleural effusions. 3. Nonspecific ground-glass and consolidative opacities within the bilateral lungs, with an upper lung zone predominance. This most likely represents developing multifocal pneumonia or asymmetric pulmonary edema. Suggest appropriate clinical treatment, and short-term chest CT follow-up in 6-8 weeks to ensure resolution of these opacities. 4. Mild mediastinal and bilateral hilar lymphadenopathy is most likely benign and reactive in etiology given the patient's lung findings. However, this should also be followed to ensure stability or resolution. D/ / 10/02/2018 11:22:54 Kehinde Styles MD / [email or web address] Interpreting Provider: Kehinde Styles MD Consult Discharge Plan - Plan Referrals: Jonel Coleman MD [Primary Care Provider] -
[2018-10-03] MEDS ORDERED: Perflutren Lipid Microsphere 1.3 ML in 0.9 % Sodium Chloride 8.7 ML IVP ONE (10:11)
[2018-10-03] MEDS: OXcarbazepine 150 MG TABLET PO SCH (19:58)
[2018-10-04] MEDS: Ipratropium/Albuterol Neb 3 ML IH SCH ×4 (00:35→11:19)
[2018-10-04 04:43] LABS: Hematocrit 32.9 % (35.3-44.9); Hemoglobin 10.5 g/dL (11.5-15.4); Mean Corpuscular HGB Conc 31.9 g/dL (31.6-35.5); Mean Corpuscular Hemoglobin 28.5 pg (28.0-33.3); Mean Corpuscular Volume 89.2 fL (83.0-100.0); Mean Platelet Volume 9.1 fL (9.4-12.4); Platelet Count 406 K/mcL (140-400); Red Blood Count 3.69 M/mcL (3.82-4.97); Red Cell Distribution Width 13.6 % (11.5-14.5); White Blood Count 12.7 K/mcL (4.3-11.1)
[2018-10-04 04:57] LABS: Alanine Aminotransferase 14 Units/L (7-52); Albumin 3.5 g/dL (3.5-5.7); Albumin/Globulin Ratio 1.3 (1.1-2.2); Alkaline Phosphatase 69 Units/L (34-104); Aspartate Amino Transferase 10 Units/L (13-39); BUN/Creatinine Ratio 23 (6-26); Bilirubin,Total 0.2 mg/dL (0.3-1.0); Blood Urea Nitrogen 18 mg/dL (6-20); Calcium 8.9 mg/dL (8.6-10.3); Carbon Dioxide 27 mEq/L (23-29); Chloride 104 mEq/L (98-107); Globulin 2.6 g/dL (2.4-3.5); Glucose 123 mg/dL (70-105); Osmolality,Calculated 295 (280-300); Potassium 3.6 mEq/L (3.5-5.1); Sodium 141 mEq/L (136-145); Total Protein 6.1 g/dL (6.4-8.9); eGFR For African Americans > 60 (> 60); eGFR For Non-African Americans > 60 (> 60)
[2018-10-04] MEDS: ALPRAZolam 1 MG TABLET PO SCH ×2 (05:06→12:17)
[2018-10-04] MEDS: *HR* Heparin 5,000 UNIT/ML VIAL SQ SCH (05:06)
--- NOTE | 2018-10-04 06:25 | Electrocardiograph Report ---
[email or web address] Test Date: 2018-10-01 Pat Name: Amirah Collier Department: EXAM1 Room: 3B16 Gender: F Personnel Representative: : [id number] Requested By: Radha Borja Order Number: [id number] Reading MD: Eric Moise Measurements Intervals Palmer Rate: 80 P: 72 NM: 150 QRS: 46 QRSD: 106 T: 26 QT: 383 QTc: 442 Interpretive Statements Sinus rhythm Electronically Signed On 10-04-2018 6:24:12 EDT by Eric Moise
--- NOTE | 2018-10-04 08:49 | Discharge Summary ---
- NOTES TO OUTPATIENT PROVIDER Notes to Outpatient Provider: f/u with PCP within a week. f/u with pulmonology within a month. f/u with psychiatry as scheduled. Orders not resulted at time of discharge: Pending orders 10/01/18 16:38 Culture,Blood [] Stat Date of Encounter: 10/04/18 Time of Encounter: 08:41 - Discharge Diagnosis (1) Bipolar II disorder Priority: Secondary Status: Chronic (2) Generalized anxiety disorder Priority: Secondary Status: Chronic (3) Acute exacerbation of chronic obstructive airways disease Priority: Primary Status: Acute (4) DVT prophylaxis Priority: Primary Status: Acute (5) Lactic acidosis Priority: Primary Status: Acute (6) Pneumonia Priority: Primary Status: Acute Qualifiers: Pneumonia type: due to unspecified organism Laterality: unspecified laterality Lung location: unspecified part of lung Qualified Code(s): J18.9 - Pneumonia, unspecified organism Hospital course: Ms. Collier is a 57 year old female with history of anxiety disorder and bipolar disorder presents for shortness of breath. Onset was 10 days ago. She was seen by primary care physician who prescribed antibiotics and IV in office steroids followed by a steroid taper, but patient did not get better. She was urged by her primary care physician to go into ED for further treatment of a COPD exacerbation. Patient stated she would like to try not to go to ED but since shortness of breath persisted she has now come in. She admits to sharp chest wall pain with cough. She denies any substernal pain, orthopnea, edema, dizziness, calf or leg tenderness. She has significant anxiety and very tearful on examination. In the ED she had a chest x-ray that was unremarkable. She had leukocytosis of 17k after getting some steroids in the past day. ABG showed pH 7.44, pCO2 30, pO2 61. Lactic acid was elevated at 4.7, procalcitonin was negative. Troponin was negative and EKG was unremarkable. She was afebrile. Urinalysis showed elevated specific gravity and urine ketones. She was given IV Solu Medrol, Duo Nebs, 1L Normal saline. Currently she is tearful but in no ac [place] respiratory distress. CT chest was performed and showed possible pneumonia. IV Levaquin was started. ECHO was completed, showed normal LV EF, grade 2 diastolic CHF and mild LVH. Pt does not have volume overload on physical exam, sob and cough have improved with treatment. Although we offered psychiatry consult, pt decline and stated she will f/u with her psychiatrist after discharge. After discussed with patient, she is agreeable to go home, she will continue taking oral abx and prednisone as prescribed, f/u with PCP, pulm, and psych as scheduled. Discharge discussed with: patient Time spent discussing smoking cessation with patient: more than 10 minutes - Time Spent with Patient Total time spent providing and/or coordinating discharge services: Time spent: Greater than 30 minutes - Discharge Medications Prescriptions: New levoFLOXacin [Levaquin] 750 mg PO DAILY #10 tablet GuaiFENesin ER [Mucinex] 1,200 mg PO BID PRN #30 tbbp.12hr PRN Reason: Cough predniSONE [PredniSONE] 40 mg PO DAILY #30 tablet Continued Lisinopril [Zestril] 20 mg PO DAILY Amlodipine Besylate 10 mg PO DAILY Oxycodone HCl/Acetaminophen [Percocet 5-325 mg Tablet] 1 tab PO 5XD Venlafaxine XR (24 HR) [Effexor XR] 75 mg PO DAILY Ibuprofen [Ibu] 800 mg PO TID PRN PRN Reason: Pain Paliperidone [Paliperidone ER] 6 mg PO DAILY Alprazolam XR [Xanax Xr] 3 mg PO BID Omeprazole [PriLOSEC] 40 mg PO DAILY Albuterol Sulfate [Proventil Inhaler] 2 puff IH Q4HR PRN PRN Reason: SOB/WHEEZING Ipratropium/Albuterol Neb [Duoneb] 3 ml IH Q6HR PRN PRN Reason: SOB/WHEEZING LORazepam [Ativan] 1 mg PO BID PRN PRN Reason: BREAKTHROUGH ANXIETY OXcarbazepine [Oxcarbazepine] 900 mg PO HS Discontinued Azithromycin [Zithromax] 250 mg PO DAILY Cefdinir [Omnicef] 300 mg PO BID Home Medications: Amlodipine Besylate 10 mg PO DAILY 07/07/17 [History] Lisinopril [Zestril] 20 mg PO DAILY 07/07/17 [History] Oxycodone HCl/Acetaminophen [Percocet 5-325 mg Tablet] 1 tab PO 5XD 07/07/17 [History] Alprazolam XR [Xanax Xr] 3 mg PO BID 04/17/19 [History] Ibuprofen [Ibu] 800 mg PO TID PRN 06/15/18 [History] Paliperidone [Paliperidone ER] 6 mg PO DAILY 06/15/18 [History] Venlafaxine XR (24 HR) [Effexor XR] 75 mg PO DAILY 06/15/18 [History] Albuterol Sulfate [Proventil Inhaler] 2 puff IH Q4HR PRN 10/01/18 [History] Ipratropium/Albuterol Neb [Duoneb] 3 ml IH Q6HR PRN 10/01/18 [History] LORazepam [Ativan] 1 mg PO BID PRN 10/01/18 [History] OXcarbazepine [Oxcarbazepine] 900 mg PO HS 10/01/18 [History] Omeprazole [PriLOSEC] 40 mg PO DAILY 10/01/18 [History] GuaiFENesin ER [Mucinex] 1,200 mg PO BID PRN #30 tbbp.12hr 10/04/18 [Rx] levoFLOXacin [Levaquin] 750 mg PO DAILY #10 tablet 10/04/18 [Rx] predniSONE [PredniSONE] 40 mg PO DAILY #30 tablet 10/04/18 [Rx] Allergies/Adverse Reactions: Allergy/AdvReac Type Severity Reaction Status Date / Time pramipexole [From Mirapex] Allergy Seizure Verified 04/06/18 14:44 tetracycline [Tetracycline] Allergy Anaphylaxis Verified 04/06/18 14:44 aspirin AdvReac Gastrointestinal Verified 04/06/18 14:44 Upset Date of admission: 10/01/18 18:08 Primary care physician: Jonel Coleman MD Consults: 10/03/18 07:59 Consult to Nurse Navigator [CONS] Routine Comment: COPD, PNEUMONIA Anticipated date of discharge: 10/04/18 - Constitutional Vitals: Temp Pulse Resp BP Pulse Ox 98.3 F 81 16 150/93 90 10/04/18 06:38 10/04/18 06:38 10/04/18 06:38 10/04/18 06:38 10/04/18 06:38 General appearance: Present: A&O X 3, no acute distress Exam: PHYSICAL EXAMINATION: GENERAL APPEARANCE: The patient is alert, oriented and in no acute distress. HEENT: Head is normocephalic. The sinuses are nontender. Pupils are equal and reactive. The nares are patent. Oropharynx clear without lesions. NECK: Supple without lymphadenopathy. HEART: Regular rate and rhythm. LUNGS: No crackles or wheezes are heard. ABDOMEN: Soft, nontender, nondistended with good bowel sounds heard. Inguinal area is normal. EXTREMITIES: Without cyanosis, clubbing or edema. NEUROLOGICAL: Gross nonfocal. SKIN: Warm and dry without any rash. - Patient Status Disposition: Home, Self-Care Condition: Fair Functional capacity at discharge: independent ambulation Overall status at discharge: patient is progressing back to baseline - Discharge Instructions Follow Up With: Jonel Coleman MD [Primary Care Provider] - (Appointment has been requested.) Forms: ED Satisfaction Letter - Diet and Activity Activity: increase activity as tolerated Diet: low fat, low cholesterol, low salt diet
[2018-10-04] MEDS: *HR* OxyCODONE/APAP 5/325 TABLET PO SCH ×2 (09:56→12:17)
[2018-10-04] MEDS: Lisinopril 20 MG TABLET PO SCH (09:56)
[2018-10-04] MEDS: Venlafaxine XR (24 HR) 75 MG CAP.ER.24H PO SCH (09:56)
[2018-10-04] MEDS: predniSONE 20 MG TABLET PO SCH (09:57)
[2018-10-04] MEDS: levoFLOXacin 750 MG/150 ML 750 MG/150 ML BAG IVPB SCH (09:57)
[2018-10-04] MEDS: amLODIPine 5 MG TABLET PO SCH (09:57)
[2018-10-04] MEDS: Fluticasone Propionate Nasal 50 MCG/SPRAY BOTTLE NS SCH (10:05)
[2018-10-04 11:04] VITALS: BP 161/88
== END 2018-10-04 15:44 | disposition home or self-care (01) ==
LOC: 3BNU 16:01 → EMEROOARM 16:01 → 3BNU 19:58
PROVIDERS: ADMIT Student in an Organized Health Care Education/Training Program; ATTEND Student in an Organized Health Care Education/Training Program

== ENCOUNTER 2019-09-15 09:33 | Observation (INO) ==
[2019-09-15] MEDS ORDERED: Ondansetron 4 MG/2 ML VIAL ONE (10:01)
[2019-09-15] MEDS ORDERED: Ondansetron 4 MG/2 ML VIAL IVP ONE (10:07)
[2019-09-15 10:50] LABS: Basophils % 0.5 %; Eosinophils # 0.1 K/mcL (0.0-0.6); Eosinophils % 1.4 %; Hematocrit 40.6 % (35.3-44.9); Hemoglobin 12.7 g/dL (11.5-15.4); Immature Granulocytes % 0.3 % (0-4); Lymphocytes # 1.8 K/mcL (0.6-4.6); Lymphocytes % 20.5 %; Mean Corpuscular HGB Conc 31.3 g/dL (31.6-35.5); Mean Corpuscular Hemoglobin 27.9 pg (28.0-33.3); Mean Corpuscular Volume 89.2 fL (83.0-100.0); Mean Platelet Volume 8.4 fL (9.4-12.4); Monocytes # 0.3 K/mcL (0.0-1.3); Monocytes % 2.9 %; Neutrophils # 6.6 K/mcL (1.6-8.9); Platelet Count 430 K/mcL (140-400); Red Blood Count 4.55 M/mcL (3.82-4.97); Red Cell Distribution Width 14.2 % (11.5-14.5); Segmented Neutrophils % 74.4 %; White Blood Count 8.8 K/mcL (4.3-11.1)
[2019-09-15 11:11] LABS: BUN/Creatinine Ratio 18 (6-26); Blood Urea Nitrogen 13 mg/dL (6-20); Carbon Dioxide 27 mEq/L (23-29); Chloride 106 mEq/L (98-107); Glucose 163 mg/dL (70-105); Osmolality,Calculated 296 (280-300); Potassium 3.3 mEq/L (3.5-5.1); Sodium 141 mEq/L (136-145); Troponin I < 0.03 ng/mL (< 0.04); eGFR For African Americans > 60 (> 60); eGFR For Non-African Americans > 60 (> 60)
[2019-09-15 11:38] LABS: Bacteria,Urine Few per hpf (None-Few); Bilirubin,Urine Negative (Negative); Blood,Urine Small (Negative); Clarity,Urine Turbid (Clear); Color,Urine Yellow (Yellow); Glucose,Urine (UA) Normal (Normal); Ketones,Urine Trace mg/dL (Negative); Leukocyte Esterase,Urine Negative (Negative); Mucus,Urine Many per lpf (None-Few); Nitrite,Urine Negative (Negative); Protein,Urine 50 mg/dL (Neg-Trace); Specific Gravity,Urine > 1.030 (1.010-1.025); Squamous Epithelial Cell,Urine Moderate per hpf (None-Few)
[2019-09-15] MEDS ORDERED: ALPRAZolam 1 MG TABLET PO ONE (11:42)
[2019-09-15] MEDS ORDERED: Potassium Chloride 40 MEQ, Lidocaine 1% 2 ML in D5% in Water 500 ML IVPB ONE (13:14)
[2019-09-15] MEDS ORDERED: Naloxone 0.4 MG/ML INJ IVP PRN (13:20)
[2019-09-15] MEDS ORDERED: Gadolinium Contrast Agent (WT Based) IV PRN (13:21)
[2019-09-15] MEDS ORDERED: D5% in Water 1,000 ML IVC PRN (13:25)
[2019-09-15] MEDS ORDERED: Dextrose Gel 15 GM/37.5 ML TUBE PO PRN ×2 (13:25)
[2019-09-15] MEDS ORDERED: *HR* Dextrose 50 % in Water (Vial) 50 ML VIAL IVP PRN (13:25)
[2019-09-15] MEDS ORDERED: *HR* LORazepam 1 MG TABLET PO PRN (14:12)
[2019-09-15] MEDS ORDERED: Ondansetron 4 MG/2 ML VIAL IVP PRN (14:15)
[2019-09-15] MEDS ORDERED: Ipratropium/Albuterol Neb 3 ML IH PRN (14:19)
[2019-09-15 15:25] LABS: Estimated Average Glucose 134 mg/dl; Hemoglobin A1C 6.3 %
[2019-09-15] MEDS ORDERED: cefTRIAXone 1,000 MG in Water for inj. (sterile) 10 ML IVP SCH (16:00)
[2019-09-15] MEDS: Insulin LISPRO 300 UNITS/3 ML VIAL SQ SCH ×2 (16:24→16:38)
[2019-09-15] MEDS: ALPRAZolam 1 MG TABLET PO SCH (16:34)
[2019-09-15] MEDS: *HR* Heparin 5,000 UNIT/ML VIAL SQ SCH (16:34)
[2019-09-15] MEDS ORDERED: Insulin LISPRO 300 UNITS/3 ML VIAL SQ SCH (21:00)
[2019-09-15] MEDS ORDERED: ALPRAZolam 1 MG TABLET PO SCH (21:00)
[2019-09-15] MEDS ORDERED: OXcarbazepine 150 MG TABLET PO SCH (21:00)
[2019-09-16 03:23] LABS: Basophils # 0.1 K/mcL (0.0-0.2); Basophils % 0.6 %; Eosinophils # 0.2 K/mcL (0.0-0.6); Eosinophils % 1.8 %; Hematocrit 39.1 % (35.3-44.9); Hemoglobin 12.4 g/dL (11.5-15.4); Immature Granulocytes % 0.3 % (0-4); Lymphocytes # 4.4 K/mcL (0.6-4.6); Lymphocytes % 44.9 %; Mean Corpuscular HGB Conc 31.7 g/dL (31.6-35.5); Mean Corpuscular Hemoglobin 28.9 pg (28.0-33.3); Mean Corpuscular Volume 91.1 fL (83.0-100.0); Monocytes # 0.5 K/mcL (0.0-1.3); Monocytes % 4.6 %; Neutrophils # 4.7 K/mcL (1.6-8.9); Platelet Count 390 K/mcL (140-400); Red Blood Count 4.29 M/mcL (3.82-4.97); Red Cell Distribution Width 14.1 % (11.5-14.5); Segmented Neutrophils % 47.8 %; White Blood Count 9.8 K/mcL (4.3-11.1)
[2019-09-16 03:39] LABS: BUN/Creatinine Ratio 24 (6-26); Blood Urea Nitrogen 17 mg/dL (6-20); Calcium 8.7 mg/dL (8.6-10.3); Carbon Dioxide 25 mEq/L (23-29); Chloride 108 mEq/L (98-107); Glucose 96 mg/dL (70-105); Magnesium 2.2 mg/dL (1.6-2.6); Osmolality,Calculated 293 (280-300); Phosphorous 4.1 mg/dL (2.7-4.5); Potassium 3.9 mEq/L (3.5-5.1); Sodium 141 mEq/L (136-145); eGFR For African Americans > 60 (> 60); eGFR For Non-African Americans > 60 (> 60)
[2019-09-16] MEDS: *HR* Heparin 5,000 UNIT/ML VIAL SQ SCH (05:49)
[2019-09-16 06:48] VITALS: BP 154/76
[2019-09-16] MEDS: Insulin LISPRO 300 UNITS/3 ML VIAL SQ SCH (07:18)
[2019-09-16] MEDS: ALPRAZolam 1 MG TABLET PO SCH (08:38)
[2019-09-16] MEDS ORDERED: amLODIPine 5 MG TABLET PO SCH (09:00)
[2019-09-16] MEDS ORDERED: lisinopriL 20 MG TABLET PO SCH (09:00)
[2019-09-16] MEDS ORDERED: Venlafaxine XR (24 HR) 37.5 MG CAP.ER.24H PO SCH (09:00)
== END 2019-09-16 11:15 | disposition home or self-care (01) ==
LOC: EMEROOARM 09:33 → 3BNU 09:33 → SUATTDRO 13:15 → 3BNU 14:00
PROVIDERS: ADMIT Internal Medicine; ATTEND Internal Medicine

== ENCOUNTER 2021-12-21 15:30 | Inpatient (IN) ==
[2021-12-21] MEDS ORDERED: *HR* Ticagrelor 90 MG TABLET PO ONE (15:49)
[2021-12-21] MEDS ORDERED: *HR* Ticagrelor 90 MG TABLET ONE (15:50)
[2021-12-21] MEDS ORDERED: *HR* Heparin 5,000 UNIT/ML VIAL ONE (15:50)
[2021-12-21 15:52] LABS: Basophils # 0.1 K/mcL (0.0-0.2); Basophils % 0.6 %; Eosinophils # 0.2 K/mcL (0.0-0.6); Eosinophils % 1.1 %; Hematocrit 41.6 % (35.3-44.9); Immature Granulocytes % 0.6 % (0-4); Lymphocytes # 2.1 K/mcL (0.6-4.6); Lymphocytes % 12.8 %; Mean Corpuscular HGB Conc 33.7 g/dL (31.6-35.5); Mean Corpuscular Hemoglobin 29.4 pg (28.0-33.3); Mean Corpuscular Volume 87.4 fL (83.0-100.0); Mean Platelet Volume 8.8 fL (9.4-12.4); Monocytes % 5.9 %; Neutrophils # 12.8 K/mcL (1.6-8.9); Platelet Count 439 K/mcL (140-400); Red Blood Count 4.76 M/mcL (3.82-4.97); Red Cell Distribution Width 13.2 % (11.5-14.5); White Blood Count 16.1 K/mcL (4.3-11.1)
[2021-12-21] MEDS ORDERED: *HR* Heparin 5,000 UNIT/ML VIAL IVP ONE (15:52)
[2021-12-21 15:58] LABS: INR 1.2; Prothrombin Time 13.8 Seconds (9.4-12.1)
[2021-12-21 16:00] LABS: Activated Partial Thrombo Time 26.8 Seconds (26.0-36.0)
[2021-12-21] MEDS ORDERED: *HR* FentaNYL (PF) 100 MCG/2 ML VIAL ONE (16:06)
[2021-12-21] MEDS ORDERED: *HR* Midazolam HCl 2 MG/2 ML VIAL ONE (16:06)
[2021-12-21] MEDS ORDERED: Tirofiban 12.5 MG/250ML 12.5 MG/250 ML BAG ONE (16:07)
[2021-12-21] MEDS ORDERED: Heparin 1,000 UNITS/500 mL 500 ML ONE (16:07)
[2021-12-21] MEDS ORDERED: 0.9 % Sodium Chloride 1,000 ML ONE (16:07)
[2021-12-21] MEDS ORDERED: Nitroglycerin 1,000 MCG/5 ML VIAL IV ONE (16:07)
[2021-12-21] MEDS ORDERED: *HR* Heparin 10,000 UNIT/10 ML VIAL ONE (16:07)
[2021-12-21] MEDS ORDERED: Iopamidol - 370 200 ML INFUS..BTL ONE ×2 (16:07→16:49)
[2021-12-21 16:15] LABS: Calcium 8.7 mg/dL (8.6-10.3); Potassium 3.3 mEq/L (3.5-5.1)
[2021-12-21 16:24] LABS: Troponin I 1.36 ng/mL (< 0.04)
[2021-12-21] MEDS ORDERED: Acetaminophen 325 MG TABLET PO PRN (17:42)
[2021-12-21] MEDS ORDERED: SUMAtriptan succinate 50 MG TABLET PO PRN (17:43)
[2021-12-21] MEDS ORDERED: 0.9 % Sodium Chloride 1,000 ML IVC SCH (17:45)
[2021-12-21] MEDS ORDERED: ALPRAZolam 0.5 MG TABLET PO PRN (18:01)
[2021-12-21 18:06] LABS: Basophils # 0.1 K/mcL (0.0-0.2); Basophils % 0.4 %; Eosinophils # 0.1 K/mcL (0.0-0.6); Eosinophils % 0.5 %; Hematocrit 39.7 % (35.3-44.9); Hemoglobin 13.2 g/dL (11.5-15.4); Immature Granulocytes % 0.7 % (0-4); Lymphocytes # 2.2 K/mcL (0.6-4.6); Lymphocytes % 13.9 %; Mean Corpuscular HGB Conc 33.2 g/dL (31.6-35.5); Mean Corpuscular Volume 87.3 fL (83.0-100.0); Mean Platelet Volume 8.9 fL (9.4-12.4); Monocytes # 0.8 K/mcL (0.0-1.3); Monocytes % 4.8 %; Neutrophils # 12.9 K/mcL (1.6-8.9); Platelet Count 409 K/mcL (140-400); Red Blood Count 4.55 M/mcL (3.82-4.97); Red Cell Distribution Width 13.3 % (11.5-14.5); Segmented Neutrophils % 79.7 %; White Blood Count 16.1 K/mcL (4.3-11.1)
[2021-12-21 18:22] LABS: Calcium 9.4 mg/dL (8.6-10.3); Potassium 4.1 mEq/L (3.5-5.1)
[2021-12-21] MEDS ORDERED: *HR* Atropine Sulfate 1 MG/10 ML SYRINGE ONE (19:43)
[2021-12-21] MEDS ORDERED: ALPRAZolam 1 MG TABLET PO SCH ×2 (21:00→23:45)
[2021-12-22 00:45] LABS: Bilirubin,Urine Negative (Negative); Blood,Urine Trace (Negative); Clarity,Urine Clear (Clear); Color,Urine Light-Yellow (Yellow); Glucose,Urine (UA) Normal (Normal); Ketones,Urine Negative (Negative); Leukocyte Esterase,Urine Trace (Negative); Mucus,Urine Few per lpf (None-Few); Nitrite,Urine Negative (Negative); PH,Urine 6.5 pH Units (5.0-8.0); Protein,Urine 50 mg/dL (Neg-Trace); RBC,Urine 15-30 per hpf (0-3); Specific Gravity,Urine > 1.030 (1.010-1.025); Squamous Epithelial Cell,Urine Few per hpf (None-Few); Urobilinogen,Urine Normal (Normal)
[2021-12-22 00:50] LABS: Amphetamine Screen,Urine Negative ng/mL (Cutoff=1000); Barbiturate Screen,Urine Negative ng/mL (Cutoff=200); Benzodiazepines Screen,Urine Positive ng/mL (Cutoff=200); Cannabinoid Screen,Urine Positive ng/mL (Cutoff = 50); Cocaine Screen,Urine Negative ng/mL (Cutoff= 300); Opiate Screen,Urine Negative ng/mL (Cutoff=300); Phencyclidine Screen,Urine Negative ng/mL (Cutoff=25)
[2021-12-22] MEDS ORDERED: ALPRAZolam 1 MG TABLET PO SCH (01:00)
[2021-12-22] MEDS ORDERED: Ondansetron ODT 4 MG TAB.RAPDIS SL PRN (02:44)
[2021-12-22] MEDS ORDERED: Ondansetron 4 MG/2 ML VIAL IVP PRN (02:46)
[2021-12-22] MEDS: Aspirin 81 MG TAB.CHEW PO SCH (08:29)
[2021-12-22] MEDS: Metoprolol XL (24 HR) Succ 25 MG TAB.ER.24H PO SCH (12:48)
[2021-12-22] MEDS ORDERED: Furosemide 20 MG/2 ML VIAL IVP ONE (14:36)
[2021-12-22] MEDS: ALPRAZolam 1 MG TABLET PO PRN ×2 (14:56→20:15)
[2021-12-23 02:22] LABS: Potassium 3.9 mEq/L (3.5-5.1)
[2021-12-23] MEDS ORDERED: Metoprolol XL (24 HR) Succ 25 MG TAB.ER.24H PO SCH (09:00)
[2021-12-23] MEDS: Aspirin 81 MG TAB.CHEW PO SCH (09:06)
[2021-12-23] MEDS: Spironolactone 25 MG TABLET PO SCH (09:07)
[2021-12-23] MEDS: ALPRAZolam 1 MG TABLET PO PRN ×3 (09:07→22:02)
[2021-12-23] MEDS: Metoprolol XL (24 HR) Succ 25 MG TAB.ER.24H PO SCH ×2 (09:07→10:00)
[2021-12-23] MEDS ORDERED: Metoprolol XL (24 HR) Succ 25 MG TAB.ER.24H PO ONE (09:30)
[2021-12-23] MEDS: Furosemide 20 MG/2 ML VIAL IVP SCH (14:31)
[2021-12-24 05:26] LABS: Calcium 8.6 mg/dL (8.6-10.3); Potassium 3.4 mEq/L (3.5-5.1)
[2021-12-24] MEDS ORDERED: Metoprolol XL (24 HR) Succ 25 MG TAB.ER.24H PO SCH (09:00)
[2021-12-24] MEDS: Spironolactone 25 MG TABLET PO SCH (10:10)
[2021-12-24] MEDS: Aspirin 81 MG TAB.CHEW PO SCH (10:11)
[2021-12-24] MEDS: Furosemide 20 MG/2 ML VIAL IVP SCH (10:12)
[2021-12-24 11:18] VITALS: BP 140/71; PULSE 90; TEMP 98.6; O2SAT 94
[2021-12-24] MEDS ORDERED: OXcarbazepine 150 MG TABLET PO SCH (21:00)
== END 2021-12-24 12:52 | disposition home or self-care (01) | DRG 192 ==
LOC: 2NNU 15:30 → EMEROOARM 15:30 → 2NNU 16:25
PROVIDERS: ADMIT Internal Medicine Cardiovascular Disease; ATTEND Internal Medicine Cardiovascular Disease